=== PATIENT | female | born 1945 | race Caucasian/White ===

== ENCOUNTER 2018-07-31 23:30 | Inpatient (IN) | payer MEDICARE ==
--- NOTE | ~2018-07-31 | HEMODYNAMI ---
PATIENT:HOWARD WILKINS MEDICAL RECORD: [id number] : 49 LOCATION[id number] ADMISSION DATE: 08/01/18 Generatedon:08/01/201814:31 Patient name: HOWARD WILKINS Patient #: [id number] SSN: : 1945 Date of study: 08/01/2018 Page: Of Hemodynamic Procedure Report Patient Data Patient Demographics Procedure consent was obtained First Name: HOWARD Gender: Female Last Name: CLAUDETTE : 1945 [facility] Initial: ROBERTO Age: 73 year(s) Patient #: [id number] Race: Unknown Additional ID: [id number] Contact details Address: [address] [place] [address] circle State: [place] City: [facility] Zip code: [address] Past Medical History Allergies Allergen Reaction Date Comments Reported Other allergy 08/01/2018 ALLOPURINOL, PEANUT OIL, PEANUTS Admission Admission Data Admission Date: 08/01/2018 Admission Time: 0:05 Room #: D.2119 Lab Results Lab Result Date: 08/01/2018 Lab Result Time: 0:00 Biochemistry Name Units Result Min Max BUN mg/dl 39 --(----)-* 7 18 Creatinine mg/dl 1.6 --(----)-* 0.6 1.3 CBC Name Units Result Min Max Hematocrit % 41.6 -*(----)-- 42 54 Hemoglobin g/dl 13.8 --(*---)-- 13.5 17.5 Procedure Procedure Types Cath Procedure Diagnostic Procedure LHC LHC w/Coronaries Sedation Charges Moderate Sedation up to 30 minutes Procedure Description Procedure Date Procedure Date: 08/01/2018 Procedure Start Time: 13:55 Procedure End Time: 14:30 Procedure Staff Name Function Konrad Rodriguez MD Performing Physician Cayla Terrazas RT Monitor Smith Carrasco RT Scrub Carlito Kincaid RN Nurse Procedure Data Cath Procedure Fluoroscopy Diagnostic fluoroscopy Total fluoroscopy Time: 3.6 time: 3.6 min min Diagnostic fluoroscopy Total fluoroscopy dose: 490 dose: 490 mGy mGy Contrast Material Contrast Material Type Amount (ml) Isovue 300 82 Entry Location Entry Primary Successful Side Size Upsize Upsize Entry Closure Succes sful Closure Location (Fr) 1 (Fr) 2 (Fr) Remarks Device Remarks Femoral Left 5 Fr 6 Fr Exoseal artery Long Estimated blood loss: 10 ml Diagnostic catheters Device Type Used For End Catheter Placement MULTIPACK JL 4.0 5Fr Procedure catheter MULTIPACK JL 4.0 5Fr Procedure catheter MULTIPACK 3DRC 5Fr Procedure catheter MULTIPACK Pigtail 5 Fr Procedure catheter Procedure Complications No complications Procedure Medications Medication Administration Route Dosage Oxygen etCO2 Nasal cannula 2 l/min Lidocaine 2% added to field 20 Heparin Flush Bag added to field 2 bags (1000units/500ml NS) 0.9% NaCl I.V. 100 ml/hr Radial Cocktail added to field 1 syringe (Verapamil 2mg/Nitro 400mcg/Heparin 1500units) Versed I.V. 1 mg Fentanyl I.V. 50 mcg Fentanyl I.V. 50 mcg Versed I.V. 1 mg Fentanyl I.V. 50 mcg Fentanyl I.V. 50 mcg Hemodynamics Rest HGB: 13.8 (g/dl) Heart Rate: 73 (bpm) Pressure Samples Time Site Value (mmHg) Purpose Heart Use Rate(bpm) 14:23 LV 144/18,20 Snapshot 67 14:23 AO 142/61(92) Pullback 68 14:23 LV 144/20,28 Pullback 68 Gradients Valve Time Site 1 Site 2 Mean SEP/DFP Peak To Heart Use (mmHg) (sec/min) Peak Rate (mmHg) (bpm) Aortic 14:23 LV AO 4 9 2 68 144/20,28 142/61(92) Calculations Valve P-P Mean Valve Index Valve Source Name Gradient Area Flow (cm2) Aortic 2 4 2 4 Snapshots Pre Cath Intra NCS Post Cath Vital Signs Time Heart Resp SPO2 etCO2 NIBP (mmHg) Rhythm Pain Sedation Rate (ipm) (%) (mmHg) Status Level (bpm) 13:47:50 75 29 100 31.6 156/76(118) NSR 0 (11) 10(A) , No pain 13:53:28 81 28 94 0 144/73(126) NSR 0 (11) 10(A) , No pain 13:58:49 83 16 95 24.8 146/77(118) NSR 0 (11) 10(A) , No pain 14:03:11 72 30 94 15.8 141/66(103) NSR 0 (11) 10(A) , No pain 14:07:32 67 27 92 15.8 136/65(90) NSR 0 (11) 10(A) , No pain 14:11:46 64 20 96 0 111/54(81) NSR 0 (11) 10(A) , No pain 14:16:06 62 17 95 18.8 105/50(80) NSR 0 (11) 10(A) , No pain 14:20:20 68 17 92 19.5 120/60(87) NSR 0 (11) 10(A) , No pain 14:24:40 68 31 93 14.3 128/57(81) NSR 0 (11) 10(A) , No pain 14:28:58 64 17 94 17.3 115/54(72) NSR 0 (11) 10(A) , No pain Medications Time Medication Route Dose Verified Delivered Reason Notes Effectiveness by by 13:48:02 Oxygen etCO2 2 l/min Konrad Esteban used for Nasal St Jeramie Kincaid RN procedure cannula 13:48:09 Lidocaine 2% added 20ml Konrad Silvestre for local to vial [facility] anesthetic field MD VAZQUEZ 13:48:15 Heparin Flush added 2 bags Konrad Silvestre used for Bag to [facility] procedure (1000units/500ml field MD VAZQUEZ NS) 13:48:23 0.9% NaCl I.V. 100 Konrad Esteban Per ml/hr St Jeramie Kincaid RN physician 13:51:46 Versed I.V. 1 mg Konrad Roberie for sedation St Jeramie Kincaid RN, MD 13:51:52 Fentanyl I.V. 50 mcg Konrad Roberie for sedation St Jeramie Kincaid RN, MD 13:58:40 Radial Cocktail added 1 Konrad Konrad for (Verapamil to syringe [facility] vasodilation 2mg/Nitro field MD VAZQUEZ 400mcg/Heparin 1500units) 13:59:23 Fentanyl I.V. 50 mcg Konrad Richterie for sedation St Jeramie Kincaid RN, MD 14:00:05 Versed I.V. 1 mg Konrad Richterie for sedation St Jeramie Kincaid RN, MD 14:07:09 Fentanyl I.V. 50 mcg Konrad Esteban for sedation St Jeramie Kincaid RN, MD 14:21:25 Fentanyl I.V. 50 mcg Konrad Esteban for sedation St Jeramie Kincaid RN, MD Procedure Log Time Note 13:00:57 Carlito Kincaid RN sent for patient. Start room use. 13:11:52 Signed procedure consent form obtained from patient. 13:11:53 Diagnostic Cath status Elective 13:12:04 Time tracking: Regular hours (M-F 7:00 - 5:00) 13:12:08 Plan of Care:Hemodynamics will remain stable., Cardiac rhythm will remain stable., Comfort level will be maintained., Respiratory function will remain adequate., Patient/ family verbilizes understanding of procedure., Procedure tolerated without complication., Recovers from procedure without complications.. 13:33:02 Patient received from Med II to CCL 1 Alert and oriented. Tansferred to table in Supine position. 13:33:03 Warm blankets applied, and gal hugger turned on for patient comfort. 13:33:04 Correct patient and procedure confirmed by team. 13:33:05 ECG and BP/O2 sat monitors applied to patient. 13:46:16 Full Disclosure recording started 13:46:20 Rhythm: sinus rhythm 13:46:21 Baseline sample Acquired. 13:46:27 Vital chart was started 13:46:31 Family in patients room. 13:46:35 Patient NPO since Midnight. 13:46:54 Patient allergic to Other allergyALLOPURINOL, PEANUT OIL, PEANUTS 13:46:57 Patient diabetic? Yes. 13:46:59 If diabetic: On Metformin? No 13:47:05 Is patient on blood thinner?No 13:47:07 Is the patient allergic to Iodine/contrast media? Yes. 13:47:20 Previous problem with sedation/anesthesia? Yes NAUSEA 13:47:22 Snore? Yes 13:47:23 Sleep apnea? No 13:47:24 Deviated septum? No 13:47:25 Opens mouth fully? Yes 13:47:25 Sticks out tongue? Yes 13:47:28 Airway obstruction? Yes COPD 13:47:33 Modified Silvio's test Ulnar < 7 seconds 13:47:35 Patient pain scale 0/10 ?. 13:47:42 IV patent on arrival in right forearm with 0.9% NaCl at KVO. 13:48:02 Oxygen 2 l/min etCO2 Nasal cannula was administered by Carlito Kincaid RN; used for procedure; 13:48:09 Lidocaine 2% 20ml vial added to field was administered by Konrad Rodriguez MD; for local anesthetic; 13:48:12 Lab Result : BUN 39 mg/dl 13:48:12 Lab Result : Creatinine 1.6 mg/dl 13:48:12 Lab Result : Hemoglobin 13.8 g/dl 13:48:12 Lab Result : Hematocrit 41.6 % 13:48:15 Heparin Flush Bag (1000units/500ml NS) 2 bags added to field was administered by Konrad Rodriguez MD; used for procedure; 13:48:15 Lab results completed and on chart. 13:48:19 Right Radial & Right Groin area was prepped with chlora-prep and draped in sterile fashion 13:48:20 Alarms reviewed by R. N. 13:48:20 Sharps counted by scrub and verified by R.N. 13:48:23 0.9% NaCl 100 ml/hr I.V. was administered by Carlito Kincaid RN; Per physician; 13:48:25 Use device set Radial Dx or PCI 13:48:26 ACIST Syringe (85434) opened to sterile field. 13:48:26 Medline Cath Pack ([id number]) opened to sterile field. 13:48:27 Bag Decanter () opened to sterile field. 13:48:28 ACIST Manifold (67950) opened to sterile field. 13:48:29 ACIST Hand Control (83489) opened to sterile field. 13:48:29 Tegaderm 4 x 4 (1626W) opened to sterile field. 13:48:30 MBrace Wrist Support ([id number]) opened to sterile field. 13:48:31 EMERALD Guide Wire (263-375) opened to sterile field. 13:48:33 SHEATH 6FR Slender (39-2060) opened to sterile field. 13:50:42 --------ALL STOP TIME OUT------ 13:50:43 Final Timeout: patient, procedure, and site verified with staff and physician. All members of the team are in agreement. 13:50:44 Right Radial & Right Groin site verified by team. 13:50:47 Maximum allowable Isovue 300 dose 300ml. Physician notified. (300ml for normal creatinines. For patients with creatinine of 1.7 or higher multiply weight(kg) x 5 divided by creatinine.) 13:50:51 Fire Safety Assessment: A--An alcohol-based skin anteseptic being used preoperatively., C--Open oxygen or nitrous oxide is being used., D--An ESU, laser, or fiber-optic light is being used. 13:50:56 Physical assessment completed. ASA score P 3 - A patient with severe systemic disease as per Konrad Rodriguez MD. 13:51:00 Sedation plan: IV Moderate Sedation Medication:Versed, Fentanyl 13:51:46 Versed 1 mg I.V. was administered by Carlito Kincaid RN; for sedation; 13:51:52 Fentanyl 50 mcg I.V. was administered by Carlito Kincaid RN; for sedation; 13:54:49 Procedure started. 13:55:16 Local anesthetic to right radial artery with Lidocaine 2% by Konrad Rodriguez MD.INITIAL ACCESS ONLY 13:58:40 Radial Cocktail (Verapamil 2mg/Nitro 400mcg/Heparin 1500units) 1 syringe added to field was administered by Konrad Rodriguez MD; for vasodilation; 13:59:23 Fentanyl 50 mcg I.V. was administered by Carlito Kincaid RN; for sedation; 14:00:05 Versed 1 mg I.V. was administered by Carlito Kincaid RN; for sedation; 14:01:56 UNABLE TO GO RADIAL. PROCEED TO LT. GROIN 14:05:20 SHEATH 5FR Pitkin (AZQ314) opened to sterile field. 14:05:34 Local anesthetic to left femerol artery with Lidocaine 2% by Konrad Rodriguez MD.ADDITIONAL ACCESS 14:07:09 Fentanyl 50 mcg I.V. was administered by Carlito Kincaid RN; for sedation; 14:08:30 A 5 Fr sheath was inserted into the Left Femoral artery 14:08:58 Use device set Multipack Set 14:09:00 DIAGNOSTIC Multipack 5Fr catheter set ([id number]) opened to sterile field. 14:09:36 A MULTIPACK JL 4.0 5Fr catheter was advanced over the wire and used for Procedure. 14:11:01 GLIDE WIRE ANGLE 260cm (VW2424) opened to sterile field. 14:11:12 MAGIC TORQUE 180cm 0.035 wire ([id number]) opened to sterile field. 14:14:16 SHEATH 6FR Destination (RSR01) opened to sterile field. 14:14:33 Catheter exchanged over wire. 14:14:44 LONG 6F SHEATH NEEDED 14:15:03 Sheath upsized to a 6 Fr Long. 14:16:56 A MULTIPACK JL 4.0 5Fr catheter was advanced over the wire and used for Procedure. 14:19:28 LCA angiography performed. 14:19:37 Catheter exchanged over wire. 14:19:45 A MULTIPACK 3DRC 5Fr catheter was advanced over the wire and used for Procedure. 14:21:12 RCA angiography performed. 14:21:13 Catheter exchanged over wire. 14:21:21 A MULTIPACK Pigtail 5 Fr catheter was advanced over the wire and used for Procedure. 14:21:25 Fentanyl 50 mcg I.V. was administered by Carlito Kincaid RN; for sedation; 14:22:05 LV gram done using CARMONA 14:22:10 Injector settings: Ml/sec: 10, Volume: 20, 14:23:04 LV hemodynamics recorded. 14:23:16 EF : 20 % 14:23:18 Catheter removed. 14:23:29 EXOSEAL 6Fr (EX600) opened to sterile field. 14:24:18 SHEATH 6FR Pitkin (RXV707) opened to sterile field. 14:24:29 LONG SHEATH EXCHANGED FOR SHORT SHEATH 14:24:44 Sheath removed intact; hemostasis achieved with Exoseal to the Left Femoral artery. 14:26:03 Procedure ended.(Physican Out) 14:26:15 Fluoroscopy time 03.60 minutes. 14:26:19 Fluoroscopy dose: 490 mGy 14:: Flurop Dose total: 490 14:26:23 Contrast amount:Isovue 300 82ml. 14:26:30 Sharps counted by scrub and verified by R.N. 14::34 Post-op/insertion site Left Femoral artery dressed using a 4 x 4 and Tegaderm. 14::37 Post-procedure physical assessment completed. ASA score P 3 - A patient with severe systemic disease as per Konrad Rodriguez MD. 14:26:39 Post procedure rhythm: sinus rhythm 14::41 Estimated blood loss: 10 ml 14:26:42 Post procedure instruction explained to patient.Patient verbalizes understanding. 14:26:43 Patient needs reinforcement of post procedure teaching. 14:27:01 Procedure type changed to Cath procedure, Diagnostic procedure, LHC, LHC w/Coronaries, Sedation Charges, Moderate Sedation up to 30 minutes 14:29:47 Procedure and supply charges have been captured, reviewed, submitted and are correct. 14:29:51 Procedure Complication : No complications 14:29:53 Vital chart was stopped 14:29:53 See physician's report for complete and final results. 14:29:55 Report given to PCU. 14:29:58 Patient transfered to PCU with Bed. 14:30:00 Procedure ended. 14:30:00 Full Disclosure recording stopped 14:30:03 End room use (Document Last) Device Usage Item Name Manufacture Quantity Catalog Hospital Part Current Minima l Lot# / Number Charge Number Stock Stock Serial# Code ACIST Acist 1 12956 616156 483102 031260 20 Syringe Medical (16969) Systems Inc Medline Cath Medline 1 [id number] 519767 46152 984148 5 Pack ([id number]) Bag Decanter Microtek 1 2002S 319633 16205 730933 5 (2002S) Medical Inc. ACIST Acist 1 40716 578719 600219 995354 5 Manifold Medical (45754) Systems Inc ACIST Hand Acist 1 08282 033395 442667 311935 5 Control Medical (42817) Systems Inc Tegaderm 4 x 3M 1 1626W 305900 624061 767904 5 4 (1626W) MBrace Wrist Advanced 1 140-0250-00 181903 40967 817722 5 Support Vascular (440231062) Dynamics EMERALD Cardinal 1 502-455 527090 891486 012162 5 Guide Wire Health (502-455) SHEATH 6FR Terumo 1 [id number] 570045 177875 334006 5 Slender (80-1060) SHEATH 5FR Terumo 1 CIW492 891575 831912 913147 5 Pitkin (MGE047) DIAGNOSTIC Cardinal 1 MM8540 522890 51779 718002 30 Multipack Health 5Fr catheter set (MA3967) MULTIPACK JL Cardinal 1 830720 5 4.0 5Fr Health catheter GLIDE WIRE Terumo 1 PU1318 960042 810720 671894 5 ANGLE 260cm (UR3102) MAGIC TORQUE Sag[place]ore 1 [id number] 719043 228711 807052 1 180cm 0.035 Scientific wire ([id number]) SHEATH 6FR Terumo 1 RSR01 434479 95743 654519 5 Destination (RSR01) MULTIPACK Cardinal 1 262387 5 3DRC 5Fr Health catheter MULTIPACK Cardinal 1 397090 5 Pigtail 5 Fr Health catheter EXOSEAL 6Fr Cardinal 1 EX600 306276 325296 108885 10 (EX600) Health SHEATH 6FR Terumo 1 SWW664 308473 158883 874594 40 Pitkin (LSQ392) Signature Audit [place] Stage Time Signature Unsigned Intra-Procedure 08/01/2018 Cayla Terrazas 2:31:16 PM RT(R) Signatures Monitor : Cayla Terrazas Signature : RT Date : Time : [address] [place] [address]
[~2018-07-31 23:30] MED LIST: BAYER CHEWABLE81 MG PO; GLUCOPHAGE850 MG PO; GLUCOTROL 5 MG T5 MG PO; HYDROCHLOROTHIA25 MG PO; LASIX20 MG PO; LYRICA50 MG PO; MOBIC7.5 MG PO; PEPCID40 MG PO; PLAVIX75 MG PO; SYNTHROID50 MCG PO
[2018-07-31] MEDS ORDERED: KLOR-CON 1010 MEQ PO (23:41)
[2018-07-31] MEDS ORDERED: TOPROL XL25 MG PO (23:41)
[2018-07-31] MEDS ORDERED: COREG6.25 MG PO (23:42)
[2018-07-31] MEDS ORDERED: PACERONE200 MG PO (23:42)
[2018-07-31] MEDS ORDERED: BUSPAR10 MG PO (23:43)
[2018-07-31] MEDS ORDERED: ULORIC80 MG PO (23:43)
[2018-07-31] MEDS ORDERED: PEPCID AC20 MG (23:43)
[2018-07-31] MEDS ORDERED: BUMEX2 MG PO (23:44)
[2018-08-01 00:17] LABS: BASOPHILS 0.3 % (0-2); EOSINOPHILS 2.9 % (0-7); HEMATOCRIT 45.5 % (36.0-48.0); HEMOGLOBIN 15.4 g/dL (12-16); IMMATURE GRANULOCYTES 0.5 % (0-5); LYMPHOCYTES 21.9 % (15-50); MCH 33.6 pg (26.0-34.0); MCHC 33.8 g/dL (31.0-37.0); MCV 99.3 fL (80.0-100.0); MEAN PLATELET VOLUME 10.2 fL (7.4-10.4); MONOCYTES 13.7 % (2-11); NEUTROPHILS 60.7 % (40-80); RBC 4.58 10x6/uL (4.00-5.40); RDW 15.7 % (11.5-14.5); WBC 6.6 10x3/uL (4.8-10.8)
[2018-08-01 00:19] LABS: PLATELET COUNT 206 10x3/uL (130-400)
[2018-08-01 00:28] LABS: APTT 25.7 SECONDS (22.8-39.4); INR 0.97 (0.85-1.17); PROTIME 12.4 SECONDS (11.6-15.0)
[2018-08-01 00:34] LABS: ALBUMIN 3.7 g/dL (3.4-5.0); ANION GAP 11.8 mmol/L (8-16); BILIRUBIN - TOTAL 0.45 mg/dL (0.2-1.3); CALCIUM 9.2 mg/dL (8.5-10.1); CARBON DIOXIDE 30.5 mmol/L (21.0-32.0); CREATININE - SERUM 1.9 mg/dL (0.6-1.3); POTASSIUM - SERUM 5.3 mmol/L (3.5-5.1); PROTEIN - SERUM 7.9 g/dL (6.4-8.2)
[2018-08-01 00:39] LABS: APPEARANCE HAZY (CLEAR); BILIRUBIN NEGATIVE (NEGATIVE); COLOR YELLOW (YELLOW); GLUCOSE NEGATIVE (NEGATIVE); KETONE NEGATIVE (NEGATIVE); NITRITE POSITIVE (NEGATIVE); PROTEIN NEGATIVE (NEGATIVE); SPECIFIC GRAVITY 1.015 (1.005-1.020); UROBILINOGEN NORMAL (NORMAL)
[2018-08-01 00:40] LABS: BACTERIA MANY /hpf (NONE SEEN); EPITHELIAL CELLS 0-5 /hpf (0-5); RED CELLS - URINE 0-5 /hpf (0-5)
[2018-08-01 00:48] LABS: THYROID STIMULATING HORMONE 4.02 uIU/mL (0.36-3.74)
[2018-08-01 00:49] LABS: TROPONIN-I 0.016 ng/mL (0.000-0.060)
--- NOTE | 2018-08-01 01:54 | NUR ---
PT TO FLOOR VIA WHEELCHAIR. PT ALERT AND ORIENTED X 4. UP AB YADIRA. DENIES PAIN AT THIS TIME. IV TO R FA WITH LEVAQUIN INFUSING UPON ARRIVAL TO FLOOR. TELE APPLIED, NORMAL SINUS RHYTHM NOTED. PT STATES SHE HAS A PACEMAKER TO L CHEST. RM AIR. NO EDEMA NOTED AT THIS TIME. NON PRODUCTIVE COUGH NOTED. DENIES FURTHER NEEDS AT THIS TIME. VITALS STABLE. BED LOWERED AND LOCKED. CL IN REACH. WILL CTM.
[2018-08-01 02:05] VITALS: BP 149/79; BMI 29.9
[2018-08-01 04:00] VITALS: BP 149/79
--- NOTE | 2018-08-01 04:36 | NUR ---
PT LAYING IN BED RESTING AT THIS TIME. BREATHING EVEN AND UNLABORED. DENIES PAIN. NO FURTHER CONCERNS. BED LOWERED AND LOCKED. CL IN REACH. WILL CTM.
--- NOTE | 2018-08-01 04:40 | NUR ---
PT C/O DULL/ACHY CHEST PAIN IN MID STERNUM THAT "KEEPS HANGING ON" PT NORMAL SINUS 65 ON TELE. GAVE PT ONE DOSE OF SL 0.4 MG NITROGLYCERIN. INFORMED PT I WOULD REASSESS HER CHEST PAIN IN 5 MINUTES. INFOMRED PT THAT SHE COUDL HAVE THE NITRO Q5 MIN X 3 DOSE. NO FURTHER CONERNS. PT STATED THAT THE PAIN MIGHT HAVE BEEN FROM LAYING ON HER SIDE TOO LONG. WILL CTM
--- NOTE | 2018-08-01 04:51 | NUR ---
PT STATED THAT SHE IS NO LONGER HAVING CHEST PAIN. NITRO NO LONGER NEEDED. WILL CTM
--- NOTE | 2018-08-01 06:45 | NUR ---
ASSESSMENT DONE. ALERT AND ORIENTED X 4. DENIES NEEDS AT THIS TIME. WILL CONTINUE TO MONITOR.
[2018-08-01 07:31] VITALS: BP 148/70
[2018-08-01 08:25] LABS: ANION GAP 15.4 mmol/L (8-16); CALCIUM 8.9 mg/dL (8.5-10.1); CARBON DIOXIDE 25.2 mmol/L (21.0-32.0); CREATININE - SERUM 1.6 mg/dL (0.6-1.3); POTASSIUM - SERUM 4.6 mmol/L (3.5-5.1)
[2018-08-01 08:32] LABS: BASOPHILS 0.5 % (0-2); EOSINOPHILS 2.7 % (0-7); HEMATOCRIT 41.6 % (36.0-48.0); HEMOGLOBIN 13.8 g/dL (12-16); IMMATURE GRANULOCYTES 0.3 % (0-5); LYMPHOCYTES 22.6 % (15-50); MCH 33.1 pg (26.0-34.0); MCHC 33.2 g/dL (31.0-37.0); MCV 99.8 fL (80.0-100.0); MEAN PLATELET VOLUME 10.4 fL (7.4-10.4); MONOCYTES 14.5 % (2-11); NEUTROPHILS 59.4 % (40-80); PLATELET COUNT 197 10x3/uL (130-400); RBC 4.17 10x6/uL (4.00-5.40); RDW 15.6 % (11.5-14.5); WBC 6.4 10x3/uL (4.8-10.8)
--- NOTE | 2018-08-01 09:18 | NUR ---
ASSESSMENT DONE. DENIES NEEDS AT THIS TIME. ALERT AND ORIENTED X 4. WILL CONTINUE TO MONITOR.
--- NOTE | 2018-08-01 10:10 | NUR ---
I have reviewed this patient and I concur with the Shift Assessment completed by the Licensed Practical Nurse today this shift.
[2018-08-01 11:21] VITALS: BP 128/49
[2018-08-01 14:20] VITALS: BMI 29.9
[2018-08-01 15:24] VITALS: BP 137/56
[2018-08-01] MEDS ORDERED: ULTRAM50 MG PO (17:44)
[2018-08-01 20:00] VITALS: BP 123/48
[2018-08-02] VITALS: BP 122/54
--- NOTE | 2018-08-02 02:23 | NUR ---
IV TO LEFT ARM OUT, TIP INTACT. RESITED IV TO INNER RIGHT FOREARM, 22 GUAGE. FIRST ATTEMPT. PT TOLERATED WELL. LEVAQUIN INFUSING.
[2018-08-02 03:58] LABS: BASOPHILS 0.1 % (0-2); EOSINOPHILS 2.2 % (0-7); HEMATOCRIT 41.6 % (36.0-48.0); HEMOGLOBIN 13.5 g/dL (12-16); IMMATURE GRANULOCYTES 0.1 % (0-5); LYMPHOCYTES 13.6 % (15-50); MCH 32.6 pg (26.0-34.0); MCHC 32.5 g/dL (31.0-37.0); MCV 100.5 fL (80.0-100.0); MEAN PLATELET VOLUME 9.8 fL (7.4-10.4); MONOCYTES 11.4 % (2-11); NEUTROPHILS 72.6 % (40-80); PLATELET COUNT 176 10x3/uL (130-400); RBC 4.14 10x6/uL (4.00-5.40); RDW 15.5 % (11.5-14.5); WBC 6.8 10x3/uL (4.8-10.8)
[2018-08-02 04:00] VITALS: BP 102/41
[2018-08-02 04:25] LABS: ANION GAP 10.1 mmol/L (8-16); BILIRUBIN - TOTAL 0.36 mg/dL (0.2-1.3); CALCIUM 8.6 mg/dL (8.5-10.1); CARBON DIOXIDE 31.1 mmol/L (21.0-32.0); MAGNESIUM - SERUM 1.7 mg/dL (1.8-2.4); POTASSIUM - SERUM 4.2 mmol/L (3.5-5.1); PROTEIN - SERUM 6.7 g/dL (6.4-8.2)
--- NOTE | 2018-08-02 04:42 | NUR ---
I have reviewed this patient and I concur with the Shift Assessment completed by the Licensed Practical Nurse today this shift.
--- NOTE | 2018-08-02 07:45 | NUR ---
ASSESSMENT DONE. DENIES NEEDS
[2018-08-02 08:37] VITALS: BP 114/49
[2018-08-02 12:08] VITALS: BP 99/41
--- NOTE | 2018-08-02 12:37 | NUR ---
I have reviewed this patient and I concur with the Shift Assessment completed by the Licensed Practical Nurse today this shift.
[2018-08-02] MEDS ORDERED: COREG6.25 MG PO (16:39)
[2018-08-02] MEDS ORDERED: COZAAR50 MG PO (16:39)
[2018-08-02] MEDS ORDERED: SYNTHROID50 MCG PO (16:40)
[2018-08-02] MEDS ORDERED: BUMEX2 MG PO (16:40)
[2018-08-02] MEDS ORDERED: KLOR-CON 1010 MEQ PO (16:41)
--- NOTE | 2018-08-02 16:43 | NUR ---
WITHOUT CHANGES OR DISTRESS AT THIS TIME. DENIES NEEDS.
--- NOTE | 2018-08-02 18:04 | NUR ---
DC GIVEN TO PT, DC HOME PER PERSONAL CAR
--- NOTE | 2018-08-05 08:44 | MORECARE ---
CASE MANAGEMENT DISCHARGE SUMMARY PATIENT: HOWARD WILKINS UNIT: [id number] ADM DATE: 08/01/18 AGE: 73 : [birth year] SEX: F ROOM/BED: D.2119 AUTHOR: KELTON LIU PHYSICIAN: REFERRING PHYSICIAN: ALONSO BARBOSA MD DATE OF SERVICE: 08/05/18 Discharge Plan Patient Name: HOWARD WILKINS [facility] [facility] 1945 Planned Disposition: Home Anticipated Discharge Date: 08/02/18 Discharge Date: 08/02/2018 Expected LOS: 1 Initial Reviewer: [email or web address] Initial Review Date: 08/05/2018 Generated: 08/05/18 9:44 am Patient Name: HOWARD WILKINS Page [id number] at 0844 All edits/amendments must be made on the electronic document DICTATION DATE: 08/05/1843 INDEPENDENT AGENT MUSIC EDUCATION: HE 08/05/18 0843 RPT#: [id number] DC DATE:08/02/18 STATUS: DIS IN [facility] [address] [place] [address] END OF REPORT
--- NOTE | 2018-08-05 14:16 | OP ---
PATIENT NAME: HOWARD WILKINS MEDICAL RECORD: [id number] :49 LOCATION:D.M2 D.2119 ADMISSION DATE:08/02/18 SURGEON: CELESTINE LOVETT MD DATE OF OPERATION: 08/01/2018 PROCEDURE: Left heart catheterization, selective coronary angiography, right femoral artery approach. CATHETERS: A long 6-Romanian sheath on the left side secondary to crossover graft on the left and marked tortuosity of the left iliac system. Also JL4 curved pigtail catheter. The procedure was well tolerated. The patient was returned to rush. Sheath was removed. ExoSeal device was placed. FINDINGS: Left ventriculography in 30-degree CARMONA view shows severe global hypokinesis. EF is markedly reduced. Estimated EF is 20% to 25%. CORONARY ANATOMY: LEFT MAIN: Left main is free of disease. LAD: Area of previous stenting is widely patent. There is a small diagonal pinched off at its proximal portion. CIRCUMFLEX: Free of disease. RIGHT CORONARY ARTERY: Previously placed stent is widely patent. IMPRESSION: Severe nonischemic cardiomyopathy. I will begin ARB and diuretics. Certainly could be candidate for Entresto. Continue beta blockade in the form of carvedilol. Further recommendations based on above. TRANSINT:[id number] Voice Confirmation ID: [id number] DOCUMENT ID: [id number] CELESTINE LOVETT MD at 1416 CC: [id number] DICTATION DATE: 08/01/18 1444 VESSEL SPECIALIST: 08/01/18 1801 DIS IN 08/02/18 [facility] [address] [place] [address]
--- NOTE | 2018-08-05 14:16 | CN ---
PATIENT NAME:HOWARD WILKINS MEDICAL RECORD: [id number] : [birth year] LOCATION:D.[place] D.2119 ADMIT DATE: 08/02/18 ACCOUNT: [id number] CONSULTING PHYSICIAN: CELESTINE LOVETT MD REFERRING PHYSICIAN: ALONSO BARBOSA MD DATE OF CONSULTATION: 08/01/2018 HISTORY OF PRESENT ILLNESS: A 73-year-old female with known history of coronary artery disease, status post intervention most recently, approximately [address] Almanza, has previous history of coronary artery disease, status post intervention, atrial fibrillation, actually doing well until Sunday, worked in the yard, some this week and began having increasing angina, onset of rest symptomology yesterday with chest tightness, pressure. We are asked to see her concerning her cardiovascular status. PAST MEDICAL HISTORY: Includes: 1. History of hypertension. 2. Coronary artery disease as described above. 3. Dyslipidemia. 4. Atrial fibrillation. 5. Hypothyroidism, on replacement. ALLERGIES: ALLOPURINOL. MEDICATIONS: Include amiodarone 200 mg p.o. daily, carvedilol 6.25 b.i.d., BuSpar 10 t.i.d., Bumex 2 mg daily, potassium supplementation, Pepcid 40 b.i.d., and Synthroid 50 mcg every day. SOCIAL HISTORY: Nonsmoker, nondrinker. Easily takes care of all her ADLs, does try to walk on a frequent basis. REVIEW OF SYSTEMS: The patient reports easy bruising but reports no swollen glands. The patient reports no fever, no night sweats, no significant weight gain, no significant weight loss. No significant exercise tolerance. The patient reports no dry eyes, no irritation, no vision change. Patient reports no difficulty hearing and no ear pain. Patient reports no frequent nose bleeds or nose and sinus problems. Patient reports on arm pain on exertion. No shortness of breath while lying down. No history of heart murmur. Patient reports no cough, no wheezing or coughing up blood. Patient reports no abdominal pain, no vomiting. Normal appetite. No diarrhea and not vomiting blood. No nausea and no constipation. Patient reports no incontinence. No difficulty urinating. No hematuria. No increased frequency. Patient reports no muscle aches. No weakness, no arthralgias, no back pain. No swelling of the extremities. Patient reports no abnormal mole, no jaundice, no rashes. Reports no loss of consciousness. No weakness and no numbness. No seizures, dizziness, or headaches. The patient reports no depression, no sleep disturbance, feeling safe in a relationship and no alcohol abuse. Patient reports on fatigue. Reports no runny nose or sinus pressure. No itching, no hives, and no frequent sneezing. PHYSICAL EXAMINATION: GENERAL: Pleasant female in no acute distress, appears stated age. VITAL SIGNS: Blood pressure 148/70, pulse 69 and regular. HEENT: Normocephalic, atraumatic. NECK: No bruits are noted. CONSULT REPORT [id number] HOWARD WILKINS HEART: Regular, II/ systolic ejection murmur. CHEST: Fairly good air excursion. ABDOMEN: Soft, nontender. EXTREMITIES: Pulses decreased, 1+. There is no edema. NEUROLOGIC: Grossly intact. DIAGNOSTIC DATA: ECG shows left bundle branch, secondary ST-T changes. IMPRESSION: Acute coronary syndrome, unsure if this is new onset left bundle branch block, now with rest symptomology. PLAN: For angiography, intervention based on the above. TRANSINT:[id number] Voice Confirmation ID: [id number] DOCUMENT ID: [id number] CELESTINE LOVETT MD at 1416 CC: [id number] DICTATION DATE: 08/01/18825 LYE BOILER: 08/01/18 1046 DIS IN 08/02/18 [place] [id number]
== END 2018-08-02 18:06 | disposition home or self-care (01) | DRG 287 ==
LOC: OBSVTIME → D.ER 23:30 → OBSVTIME 08-01 00:05 → D.ER 08-01 00:05 → D.M2 08-01 00:05
PROVIDERS: Family Medicine; Internal Medicine Interventional Cardiology; ADMIT Family Medicine; ATTEND Family Medicine
PROC: B2151ZZ Fluoroscopy of Left Heart using Low Osmolar Contrast (ICD-10-PCS; 2018-08-01)
PROC: 4A023N7 Measurement of Cardiac Sampling and Pressure, Left Heart, Percutaneous Approach (ICD-10-PCS; 2018-08-01)
PROC: B2111ZZ Fluoroscopy of Multiple Coronary Arteries using Low Osmolar Contrast (ICD-10-PCS; principal; 2018-08-01 13:00)
DX: I24.9 Acute ischemic heart disease, unspecified (principal); I42.9 Cardiomyopathy, unspecified; N39.0 Urinary tract infection, site not specified; N17.9 Acute kidney failure, unspecified; I44.7 Left bundle-branch block, unspecified; I25.110 Atherosclerotic heart disease of native coronary artery with unstable angina pectoris; J44.9 Chronic obstructive pulmonary disease, unspecified; E03.9 Hypothyroidism, unspecified; M19.90 Unspecified osteoarthritis, unspecified site; M81.0 Age-related osteoporosis without current pathological fracture; F32.9 Major depressive disorder, single episode, unspecified; F41.9 Anxiety disorder, unspecified; E87.5 Hyperkalemia; I48.91 Unspecified atrial fibrillation; E11.9 Type 2 diabetes mellitus without complications; Z95.0 Presence of cardiac pacemaker; Z86.73 Personal history of transient ischemic attack (TIA), and cerebral infarction without residual deficits

== ENCOUNTER 2018-10-21 09:07 | Inpatient (IN) | payer MEDICARE ==
[~2018-10-21] VITALS: Ht 149.9 cm; Wt 65.6 kg
[~2018-10-21 09:07] MED LIST changes: +BUMEX2 MG PO; +BUSPAR10 MG PO; +COREG6.25 MG PO; +COZAAR50 MG PO; +KLOR-CON 1010 MEQ PO; +PACERONE200 MG PO; +PEPCID AC20 MG; +TOPROL XL25 MG PO; +ULORIC80 MG PO; +ULTRAM50 MG PO
--- NOTE | 2018-10-21 09:32 | NUR ---
BROUGHT IN BY [facility] FROM HOME WITH REPORTS OF COUGH/CHEST CONGESTION SYMPTOMS FOR SEVERAL DAYS. DENIES FEVER, SOB, CHEST PAIN AT THIS TIME. HX OF COPD. REPORTS WHITE SPUTUM. VSS. NO ACUTE DISTRESS NOTED, WILL CONTINUE TO MONITOR FOR CHANGES.
--- NOTE | 2018-10-21 09:37 | NUR ---
RT AT BEDSIDE AT THIS TIME.
[2018-10-21 09:56] LABS: BASOPHILS 0.5 % (0-2); EOSINOPHILS 2.5 % (0-7); HEMATOCRIT 46.7 % (36.0-48.0); HEMOGLOBIN 15.9 g/dL (12-16); IMMATURE GRANULOCYTES 0.2 % (0-5); MCH 34.5 pg (26.0-34.0); MCV 101.3 fL (80.0-100.0); MEAN PLATELET VOLUME 9.9 fL (7.4-10.4); MONOCYTES 8.7 % (2-11); NEUTROPHILS 65.1 % (40-80); PLATELET COUNT 205 10x3/uL (130-400); RBC 4.61 10x6/uL (4.00-5.40); RDW 13.1 % (11.5-14.5)
[2018-10-21 10:00] VITALS: BP 147/94
[2018-10-21 10:03] LABS: ALBUMIN 3.6 g/dL (3.4-5.0); ALKALINE PHOSPHATASE 139 U/L (46-116); ALT (SGPT) 18 U/L (10-68); BILIRUBIN - TOTAL 0.66 mg/dL (0.2-1.3); CALC OSMOLALITY 290 mosm/kg (275-300); CALCIUM 9.2 mg/dL (8.5-10.1); CARBON DIOXIDE 27.9 mmol/L (21.0-32.0); CHLORIDE - SERUM 103 mmol/L (98-107); CREATININE - SERUM 1.4 mg/dL (0.6-1.3); GLUCOSE 167 mg/dL (74-106); POTASSIUM - SERUM 3.7 mmol/L (3.5-5.1); SODIUM 141 mmol/L (136-145); UREA NITROGEN 30 mg/dL (7-18); eGFR NON AFRICAN AMERICAN 39 mL/min (90-120)
[2018-10-21 10:14] LABS: CKMB 1.3 U/L (0.0-3.6); CREATINE KINASE 34 UL (21-215); PRO BNP 7202 pg/mL (0-125); TROPONIN-I 0.026 ng/mL (0.000-0.060)
[2018-10-21 10:20] LABS: INR 0.95 (0.85-1.17); PROTIME 12.2 SECONDS (11.6-15.0)
--- NOTE | 2018-10-21 12:10 | NUR ---
RECEIVED PT TO ROOM 210 VIA WHEECHAIR, PT WAS ABLE TO AMBULATE FROM WHEECHAIR TO BED WITH STEADY GATE. ORIENTED PT TO ROOM AND CALL LIGHT. PT WAS NOT ABLE TO PROVIDE INFORMATION ABOUT WHAT MEDICATIONS SHE TAKES. WILL TRY AND CALL CL ON [address] TO SEE WHAT MEDICATIONS PT TAKES. WILL ASSESS PT AND START PLAN OF CARE.
--- NOTE | 2018-10-21 14:11 | MORECARE ---
CASE MANAGEMENT DISCHARGE SUMMARY PATIENT: HOWARD WILKINS UNIT: [id number] ADM DATE: 10/21/18 AGE: 73 : 47 SEX: F ROOM/BED: D.6032 AUTHOR: ALEXA,DOC PHYSICIAN: REFERRING PHYSICIAN: ZAINAB HUFF MD DATE OF SERVICE: 10/21/18 Discharge Plan Patient Name: HOWARD WILKINS Facility: [facility]:[place] : 1945 Planned Disposition: Home Anticipated Discharge Date: 10/23/18 Discharge Date: Expected LOS: 2 Initial Reviewer: [email or web address] Initial Review Date: 10/21/2018 Generated: 10/21/18 3:11 pm DCP- Discharge Planning Updated by [email or web address]: Alisa Ly on 10/21/18 1:[address] DC PLAN: Return home alone. ANTICIPATED DC NEEDS: Does not have a PCP. Denied dc needs. CM met with patient to complete initial dc planning assessment. CM educated patient on the CM role and verbal consent given by patient to complete assessment. CM verified patient's address, phone number, and emergency contact phone numbers. Patient lives at home alone and reports she is independent in her care at home. At discharge patient plans to return home alone and feels this is a safe discharge. CM discussed availability of home health, rehab services, and medical equipment. Patient denied known discharge needs at this time. Patient reports she will call a Taxi to transport her home at time of discharge. CM will continue to follow and will assist as needed with dc plans/needs. Alisa Ly RN, [facility] DCPIA - Discharge Planning Initial Assessment Updated by [id number]: Alisa Ly on 10/21/18 2:07 pm * Is the patient Alert and Oriented? Yes * How many steps to enter\exit or inside your home? elevator * PCP Does not have a PCP * Pharmacy [facility] * Preadmission Environment Home Alone * ADLs Independent * Equipment Rolling Walker * List name and contact numbers for known caregivers / representatives who currently or will assist patient after discharge: Jaspal flores - [phone] * Verbal permission to speak to the caregivers and representatives has been obtained from the patient. Yes * Community resources currently utilized None * Additional services required to return to the preadmission environment? No * Can the patient safely return to the preadmission environment? Yes * Has this patient been hospitalized within the prior 30 days at any hospital? No Patient Name: HOWARD WILKINS Page [id number] at 1411 All edits/amendments must be made on the electronic document DICTATION DATE: 10/21/181409 GRAIN HANDLER: HE 10/21/181409 RPT#: [id number] DC DATE: STATUS: ADM IN [facility] [address] [place] [address] END OF REPORT
[2018-10-21 15:30] VITALS: BP 142/66; BMI 30.3
[2018-10-21 15:56] VITALS: BP 010/66
--- NOTE | 2018-10-21 16:55 | NUR ---
BLOOD SUGAR OF 362, 10 UNITS OF INSULIN GIVEN PER S/S. PT EATING DINNER, DENIES ANY NEEDS AT THIS TIME, CALL LIGHT IN REACH, NAD NOTED, WILL CONTINUE TO MONITOR.
[2018-10-21 20:00] VITALS: BP 152/73
[2018-10-22] VITALS: BP 129/82
[2018-10-22 04:30] VITALS: BP 150/69
[2018-10-22 05:19] LABS: ALBUMIN 3.8 g/dL (3.4-5.0); ANION GAP 18.7 mmol/L (8-16); BILIRUBIN - TOTAL 0.43 mg/dL (0.2-1.3); CALCIUM 8.9 mg/dL (8.5-10.1); CARBON DIOXIDE 25.3 mmol/L (21.0-32.0); PROTEIN - SERUM 8.2 g/dL (6.4-8.2)
[2018-10-22 05:30] LABS: HEMATOCRIT 44.3 % (36.0-48.0); HEMOGLOBIN 15.3 g/dL (12-16); LYMPHOCYTES 8.9 % (15-50); MCH 34.2 pg (26.0-34.0); MCHC 34.5 g/dL (31.0-37.0); MEAN PLATELET VOLUME 10.2 fL (7.4-10.4); NEUTROPHILS 87.7 % (40-80); PLATELET COUNT 184 10x3/uL (130-400); RBC 4.47 10x6/uL (4.00-5.40); RDW 12.7 % (11.5-14.5)
[2018-10-22 05:31] LABS: MCV 99.1 fL (80.0-100.0); WBC 7.8 10x3/uL (4.8-10.8)
--- NOTE | 2018-10-22 07:35 | NUR ---
REC'D IN BED AWAKE AND ALERT. RESP EVEN AND UNLABORED WITH NO DISTRESS NOTED. CAN EXPRESS NEEDS AND WANTS. NO C/O NOTED OR VOICED. ASSESSMENT COMPLETED. C/L IN REACH AT BEDSIDE.
--- NOTE | 2018-10-22 09:08 | NUR ---
RFUSED NICODERM PATCH ON THIS AM STATING " I AM NOT GOING TO WEAR THEN." C/L IN REACH AT BEDSIDE.
[2018-10-22 10:03] VITALS: BP 159/82
[2018-10-22 12:00] VITALS: BP 127/56
[2018-10-22 13:51] VITALS: Ht 149.9 cm; Wt 65.6 kg
--- NOTE | 2018-10-22 14:17 | NUR ---
I have reviewed this patient and I concur with the Shift Assessment completed by the Licensed Practical Nurse today this shift.
[2018-10-22 17:00] VITALS: BP 137/62
--- NOTE | 2018-10-22 19:17 | NUR ---
REPORT RCIEVED AND ROUNDING COMPLETE. PATIENT LAYING IN BED IN SUPINE POSITION. PATIENT IS A&O X4 AND STATES SHE HAS NO NEEDS AT THIS TIME, PATIENT IS SHOWING NO S/SX OF DISTRESS AT THIS TIME. PATIENT HOPE TO BE DISCHARGED TOMORROW. PATIENT HAS O2 VIA NASAL CANNULA NEXT TO HER IN HER BED, PATIENT STATES SHE USES IT WILL SHE FEELS SHE NEEDS IT. PATIENT STATES SHE DOSENT USE O2 AT HOME. CALL LIGHT WITHIN REACH AND BED IN LOWEST LOCKED POSITION.
[2018-10-22 20:00] VITALS: BP 128/60
[2018-10-23 00:30] VITALS: BP 135/49
--- NOTE | 2018-10-23 02:51 | NUR ---
I have reviewed this patient and I concur with the Shift Assessment completed by the Licensed Practical Nurse today this shift.
[2018-10-23 04:24] LABS: BASOPHILS 0.1 % (0-2); EOSINOPHILS 0.1 % (0-7); HEMATOCRIT 43.9 % (36.0-48.0); HEMOGLOBIN 15.2 g/dL (12-16); IMMATURE GRANULOCYTES 0.3 % (0-5); LYMPHOCYTES 7.9 % (15-50); MCH 33.9 pg (26.0-34.0); MCHC 34.6 g/dL (31.0-37.0); MONOCYTES 6.9 % (2-11); NEUTROPHILS 84.7 % (40-80); RBC 4.48 10x6/uL (4.00-5.40)
[2018-10-23 04:30] VITALS: BP 124/46
[2018-10-23 04:35] LABS: PLATELET COUNT 229 10x3/uL (130-400)
[2018-10-23 04:55] LABS: ALBUMIN 3.6 g/dL (3.4-5.0); ANION GAP 13.2 mmol/L (8-16); BILIRUBIN - TOTAL 0.35 mg/dL (0.2-1.3); CALCIUM 9.2 mg/dL (8.5-10.1); CREATININE - SERUM 1.7 mg/dL (0.6-1.3); POTASSIUM - SERUM 4.2 mmol/L (3.5-5.1)
--- NOTE | 2018-10-23 07:00 | NUR ---
AM ROUNDS- PT RESTING COMFORTABLY IN BED WITH EYES CLOSED, BREATHING EVEN AND UNLABORED. NO S/S OF DISTRESS NOTED AT THIS TIME. WILL CTM. PT IS ACHS FINGERSTICK BLOOD SUGARS, RUNS SINUS RHYTHM ON THE MONITOR, HAS A PACEMAKER AND DEFIBRILATOR, UP ADLIB, HAS NO IV AND IS ON ROOM AIR.
[2018-10-23 08:35] VITALS: BP 132/67
--- NOTE | 2018-10-23 09:54 | NUR ---
ADMINSITERED MEDICATION AT THIS TIME, NO TROUBLE SWALLOWING. PT IS RESTING COMFORTABLY IN BED AT THIS TIME. DENIES ANY NEEDS AT THIS TIME. WILL CTM.
--- NOTE | 2018-10-23 12:29 | NUR ---
ADMINISTERED MEDICATION, TOLERATED WELL. ASSESSED BLOOD SUGAR, ADMINISTERED 6 UNITS INSULINE PER SLIDING SCALE FOR BLOOD SUGAR OF 289. PT IS RESTING COMFORTABLY UPRIGHT IN BED. DR PIERRE CAME THROUGH AND SAID POSSIBLE DC IN THE MORNING ON 10/24. PT DENIES ANY NEEDS AT THIS TIME. WILL CTM.
[2018-10-23 12:45] VITALS: BP 115/44
--- NOTE | 2018-10-23 14:39 | NUR ---
PT IS RESTING UP RIGHT COMFORTABLY IN BED, NUMERICAL CONTROL MACHINE TOOL OPERATOR AT BEDSIDE PERFORMING PATIENT CARE. DENIES ANY NEEDS AT THIS TIME. WILL CTM.
--- NOTE | 2018-10-23 15:11 | MORECARE ---
CASE MANAGEMENT DISCHARGE SUMMARY PATIENT: HOWARD WILKINS UNIT: [id number] ADM DATE: 10/21/18 AGE: 73 : 47 SEX: F ROOM/BED: D.9377 AUTHOR: ALEXA,DOC PHYSICIAN: REFERRING PHYSICIAN: ZAINAB HUFF MD DATE OF SERVICE: 10/23/18 Discharge Plan Patient Name: HOWARD WILKINS Facility: [facility]:[place] : 1945 Planned Disposition: Home Anticipated Discharge Date: 10/24/18 Discharge Date: Expected LOS: 3 Initial Reviewer: [email or web address] Initial Review Date: 10/21/2018 Generated: 10/23/18 4:11 pm DCP- Discharge Planning Updated by [email or web address]: Alisa Ly on 10/21/18 1:[address] DC PLAN: Return home alone. ANTICIPATED DC NEEDS: Does not have a PCP. Denied dc needs. CM met with patient to complete initial dc planning assessment. CM educated patient on the CM role and verbal consent given by patient to complete assessment. CM verified patient's address, phone number, and emergency contact phone numbers. Patient lives at home alone and reports she is independent in her care at home. At discharge patient plans to return home alone and feels this is a safe discharge. CM discussed availability of home health, rehab services, and medical equipment. Patient denied known discharge needs at this time. Patient reports she will call a Taxi to transport her home at time of discharge. CM will continue to follow and will assist as needed with dc plans/needs. Alisa Ly RN, [facility] DCPIA - Discharge Planning Initial Assessment Updated by [email or web address]: Alisa Ly on 10/21/18 2:07 pm * Is the patient Alert and Oriented? Yes * How many steps to enter\exit or inside your home? elevator * PCP Does not have a PCP * Pharmacy [facility] * Preadmission Environment Home Alone * ADLs Independent * Equipment Rolling Walker * List name and contact numbers for known caregivers / representatives who currently or will assist patient after discharge: Jaspal flores - [phone] * Verbal permission to speak to the caregivers and representatives has been obtained from the patient. Yes * Community resources currently utilized None * Additional services required to return to the preadmission environment? No * Can the patient safely return to the preadmission environment? Yes * Has this patient been hospitalized within the prior 30 days at any hospital? No External Providers External Provider: Sadia Taylor Next Contact Date: 10/23/2018 Service Request Date: Service Type: Resolution: Reviewer: Comments: Coverage Notice Reviewer: [email or web address] Roxann Franco Notice Issued Date-Time: 10/23/2018 12:50 Notice Type: Patient Choice Letter Notice Delivered To: Patient Relationship to Patient: Fuel Buyer Name: Delivery Method: HAND - Hand Delivered Marcia Days: Prior Verbal Notification: Recipient Understood Notice: Yes Recipient Signature: Yes Med Rec Note Co-signed by Attending: Coverage Notice Comment: INOCENCIO Reviewer: [id number] Roxann Franco Notice Issued Date-Time: 10/23/2018 12:50 Notice Type: IM Discharge Notice Notice Delivered To: Relationship to Patient: Fuel Buyer Name: Delivery Method: HAND - Hand Delivered Marcia Days: Prior Verbal Notification: Recipient Understood Notice: Yes Recipient Signature: Yes Med Rec Note Co-signed by Attending: Coverage Notice Comment: Last DP export: 10/21/18 1:11 p Patient Name: HOWARD WILKINS Page [id number] at 1511 All edits/amendments must be made on the electronic document DICTATION DATE: 10/23/181510 GUEST SERVICES AGENT: HE 10/23/181510 RPT#: [id number] DC DATE: STATUS: ADM IN [facility] [address] [place] [address] END OF REPORT
--- NOTE | 2018-10-23 15:20 | MORECARE ---
CASE MANAGEMENT DISCHARGE SUMMARY PATIENT: HOWARD WILKINS UNIT: [id number] ADM DATE: 10/21/18 AGE: 73 : 47 SEX: F ROOM/BED: D.3209 AUTHOR: ALEXA,DOC PHYSICIAN: REFERRING PHYSICIAN: ZAINAB HUFF MD DATE OF SERVICE: 10/23/18 Discharge Plan Patient Name: HOWARD WILKINS Facility: [facility]:[place] : 1945 Planned Disposition: Home Anticipated Discharge Date: 10/24/18 Discharge Date: Expected LOS: 3 Initial Reviewer: [email or web address] Initial Review Date: 10/21/2018 Generated: 10/23/18 4:20 pm Comments DCP- Discharge Planning Updated by [email or web address]: Aguilar Franco on 10/23/18 2:[address] Patient Name: HOWARD WILKINS Encounter No: [id number] : 1945 Primary Insurance: MEDICARE A & B Anticipated DC Date: 10-24-2018 Planned Disposition: Home DCP follow-up note: CM RECEIVED ORDER FOR NEBULIZER FROM DR. PIERRE. CM MET WITH PT IN ROOM TO DISCUSS DISCHARGE NEEDS AND PLANNING. CM DISCUSSED AVAILABILITY OF HOME HEALTH, REHAB SERVICES AND MEDICAL EQUIPMENT. PT DENIES DISCHARGE NEEDS OTHER THAN NEBULIZER; LISTING PROVIDED, CHOICE SIGNED FOR [facility]. PT REPORTS SHE WILL CALL HERSELF A TAXI TO TRANSPORT HOME AT DISCHARGE. IMPORTANT MESSAGE FROM [employer] PROVIDED AND EXPLAINED. CM CALLED [facility], , SPOKE TO [employer] AND PROVIDED REFERRAL INFORMATION. CM FAXED REFERRAL TO [facility], . [facility] WILL DELIVER NEBULIZER TO HOSPITAL FOR DISCHARGE HOME TOMORROW. Aguilar Franco, CASE MANAGEMENT DCP- Discharge Planning Updated by [id number]: Alisa Ly on 10/21/18 1:[address] DC PLAN: Return home alone. ANTICIPATED DC NEEDS: Does not have a PCP. Denied dc needs. CM met with patient to complete initial dc planning assessment. CM educated patient on the CM role and verbal consent given by patient to complete assessment. CM verified patient's address, phone number, and emergency contact phone numbers. Patient lives at home alone and reports she is independent in her care at home. At discharge patient plans to return home alone and feels this is a safe discharge. CM discussed availability of home health, rehab services, and medical equipment. Patient denied known discharge needs at this time. Patient reports she will call a Taxi to transport her home at time of discharge. CM will continue to follow and will assist as needed with dc plans/needs. Alisa Ly RN, [facility] DCPIA - Discharge Planning Initial Assessment Updated by [email or web address]: Alisa Ly on 10/21/18 2:07 pm * Is the patient Alert and Oriented? Yes * How many steps to enter\exit or inside your home? elevator * PCP Does not have a PCP * Pharmacy [facility] [address] * Preadmission Environment Home Alone * ADLs Independent * Equipment Rolling Walker * List name and contact numbers for known caregivers / representatives who currently or will assist patient after discharge: Jaspal flores - [phone] * Verbal permission to speak to the caregivers and representatives has been obtained from the patient. Yes * Community resources currently utilized None * Additional services required to return to the preadmission environment? No * Can the patient safely return to the preadmission environment? Yes * Has this patient been hospitalized within the prior 30 days at any hospital? No Coverage Notice Reviewer: [id number] Roxann Franco Notice Issued Date-Time: 10/23/2018 12:50 Notice Type: Patient Choice Letter Notice Delivered To: Patient Relationship to Patient: Publishing Agent Name: Delivery Method: HAND - Hand Delivered Marcia Days: Prior Verbal Notification: Recipient Understood Notice: Yes Recipient Signature: Yes Med Rec Note Co-signed by Attending: Coverage Notice Comment: INOCENCIO Reviewer: [id number] Roxann Franco Notice Issued Date-Time: 10/23/2018 12:50 Notice Type: IM Discharge Notice Notice Delivered To: Relationship to Patient: Publishing Agent Name: Delivery Method: HAND - Hand Delivered Marcia Days: Prior Verbal Notification: Recipient Understood Notice: Yes Recipient Signature: Yes Med Rec Note Co-signed by Attending: Coverage Notice Comment: Last DP export: 10/23/18 2:11 p Patient Name: HOWARD WILKINS Page [phone] at 1520 All edits/amendments must be made on the electronic document DICTATION DATE: 10/23/18 1520 FIRE MANAGEMENT OFFICER: HE 10/23/18 1520 RPT#: [id number] DC DATE: STATUS: ADM IN [facility] [address] [place] [address] END OF REPORT
[2018-10-23 16:45] VITALS: BP 118/52
--- NOTE | 2018-10-23 17:27 | NUR ---
ADMINISTERED BLOOD SUGAR PER SLIDING SCALE FOR BLOOD SUGAR OF 210. TOLERATED WELL. PT IS REQUESTING [facility], WILL CONTACT THE [facility]. DENIES OTHER NEEDS. WILL CTM.
--- NOTE | 2018-10-23 18:21 | NUR ---
REQUESTED [facility] FROM [facility] AND CONTACTED DR. PIERRE FOR AN ORDER TO PREVENT A VAGINAL YEAST INFECTION, PER PATIENT REQUEST. DENIES OTHER NEEDS. RESTING COMFORTABLY. WILL CTM.
--- NOTE | 2018-10-23 20:45 | NUR ---
AWAKE,ALERT.NO COMPLAITNS VOICED. NO DISTRESS NOTED. RESP EVEN AND UNLABORED. UP AD YADIRA IN ROOM. CL IN REACH
[2018-10-24 01:14] VITALS: BP 142/65
[2018-10-24 05:07] VITALS: BP 154/64
[2018-10-24 05:25] LABS: BASOPHILS 0 % (0-2); EOSINOPHILS 0 % (0-7); HEMATOCRIT 45.6 % (36.0-48.0); HEMOGLOBIN 15.8 g/dL (12-16); IMMATURE GRANULOCYTES 0.3 % (0-5); LYMPHOCYTES 7.5 % (15-50); MCH 33.7 pg (26.0-34.0); MCHC 34.6 g/dL (31.0-37.0); MCV 97.2 fL (80.0-100.0); MEAN PLATELET VOLUME 9.9 fL (7.4-10.4); MONOCYTES 1.9 % (2-11); NEUTROPHILS 90.3 % (40-80); PLATELET COUNT 218 10x3/uL (130-400); RBC 4.69 10x6/uL (4.00-5.40)
[2018-10-24 05:35] LABS: WBC 9.6 10x3/uL (4.8-10.8)
[2018-10-24 05:55] LABS: ALBUMIN 3.7 g/dL (3.4-5.0); ANION GAP 14.3 mmol/L (8-16); BILIRUBIN - TOTAL 0.48 mg/dL (0.2-1.3); CALCIUM 8.8 mg/dL (8.5-10.1); CARBON DIOXIDE 28.7 mmol/L (21.0-32.0); CREATININE - SERUM 2.1 mg/dL (0.6-1.3)
--- NOTE | 2018-10-24 08:18 | NUR ---
PATIENT IS SITTING UP IN BED EATTING HER BREAKFAST. DENIES ANY NEEDS AT THIS TIME.
[2018-10-24 08:47] VITALS: BP 128/69
[2018-10-24] MEDS ORDERED: OMNICEF300 MG PO (12:14)
[2018-10-24] MEDS ORDERED: ZITHROMAX250 MG PO (12:14)
[2018-10-24] MEDS ORDERED: DIFLUCAN100 MG PO (12:15)
[2018-10-24] MEDS ORDERED: IPRAT-ALBUT 0.5-3 ML INH (12:16)
[2018-10-24] MEDS ORDERED: TRELEGY ELLIPT1 EACH INH (12:17)
[2018-10-24] MEDS ORDERED: SINGULAIR10 MG PO (12:17)
[2018-10-24] MEDS ORDERED: ALBUTEROL SULF8.5 GM INH (12:18)
[2018-10-24] MEDS ORDERED: PREDNISONE10 MG PO (12:19)
[2018-10-24] MEDS ORDERED: MUCINEX DM ER1 EAC1 PO (12:19)
--- NOTE | 2018-10-24 12:27 | NUR ---
BLOOD SUGAR OF 444 TREATED WITH 12 UNITS ORDERED. CALLED MARIA ISABEL RANGEL AND RECHECKED B/S. 387 REPORTED TO MARIA ISABEL, AND SHE SAID TO WAIT FOR THE NEXT BLOOD SUGAR CHECK.
[2018-10-24 12:30] VITALS: BP 118/60
--- NOTE | 2018-10-24 13:34 | NUR ---
NUTRITION F/U RECEIVED CONSULT FOR DIABETIC EDU. PT REPORTS BEING DIAGNOSED IN 2006. STATES SHE HAS HAD DIABETIC EDU PREVIOUSLY AND CHECKS HER BLOOD SUGAR 2 OR 3 TIMES DAILY. WILL PROVIDE ADDITIONAL INFORMATION AND ENCOURAGE COMPLIANCE. RD FOLLOWING
[2018-10-24] MEDS ORDERED: LANTUS SOL100 UNIT/1 SC (16:46)
--- NOTE | 2018-10-24 17:41 | NUR ---
PATIENT REPORTS THAT SHE IS SCARED TO GO HOME WITHOUT INSULIN AND SHE IS OUT. SHE DOES NOT HAVE A PRIMARY CARE PROVIDER. CALLED THE [facility] ON [address] IN [place], [place] # . LEARNED THAT SHE HAD BEEN TAKING LANTUS 10 U AT BEDTIME AND ADDED IT TO HER MED LIST FOR [facility] ISABEL. JUAN CARLOS NICOLAS SAID SHE IS GOING TO REASSESS IN THE AM.
--- NOTE | 2018-10-24 19:10 | NUR ---
AWAKE AND ALERT NEEDS ATTENDED TOO AND COMFORT PROVIDED LCTA SKIN WARM AND DRY BOWEL SOUNDS X4 BED IS LOW AND LOCKED AND CALL LIGHT IS WITH PT
[2018-10-24 20:00] VITALS: BP 116/67
[2018-10-25 00:32] VITALS: BP 136/64
--- NOTE | 2018-10-25 03:50 | NUR ---
I have reviewed this patient and I concur with the Shift Assessment completed by the Licensed Practical Nurse today this shift.
[2018-10-25 04:00] VITALS: BP 134/79
[2018-10-25 04:39] LABS: BASOPHILS 0 % (0-2); EOSINOPHILS 0 % (0-7); HEMATOCRIT 47.7 % (36.0-48.0); HEMOGLOBIN 16.8 g/dL (12-16); IMMATURE GRANULOCYTES 0.4 % (0-5); LYMPHOCYTES 8.6 % (15-50); MCH 34.3 pg (26.0-34.0); MCHC 35.2 g/dL (31.0-37.0); MCV 97.3 fL (80.0-100.0); MEAN PLATELET VOLUME 10.3 fL (7.4-10.4); MONOCYTES 7.9 % (2-11); NEUTROPHILS 83.1 % (40-80); PLATELET COUNT 261 10x3/uL (130-400); RDW 12.9 % (11.5-14.5); WBC 11.5 10x3/uL (4.8-10.8)
[2018-10-25 05:06] LABS: ALBUMIN 3.9 g/dL (3.4-5.0); ANION GAP 13.8 mmol/L (8-16); BILIRUBIN - TOTAL 0.29 mg/dL (0.2-1.3); CALCIUM 9.1 mg/dL (8.5-10.1); CARBON DIOXIDE 33.1 mmol/L (21.0-32.0); CREATININE - SERUM 2.3 mg/dL (0.6-1.3); PROTEIN - SERUM 7.9 g/dL (6.4-8.2)
[2018-10-25 05:07] LABS: POTASSIUM - SERUM 4.9 mmol/L (3.5-5.1)
--- NOTE | 2018-10-25 08:04 | NUR ---
PT RESTING IN BED. AROUSED BY VERBAL STIMULI. DENIES ANY NEEDS. NO S/S OF ACUTE DISTRESS. CL IN PLACE.
[2018-10-25 08:50] VITALS: BP 163/79
[2018-10-25] MEDS ORDERED: GLUCOTROL 5 MG T5 MG PO (10:34)
--- NOTE | 2018-10-25 12:23 | NUR ---
DC PAPERWORK AND EDUCATION DONE WITH PT. PT HESITATE TO SIGN PAPERWORK. PT "I LIVE IN A PLACE WHERE THERE IS A BUNCH OF DRAMA. THEY NEED TO FIGURE OUT MY GOUT MEDICINE AND MY THYROID." EXPLAINED TO PT MD WAS READY TO DC AND THOSE ISSUES WOULD NEED TO BE ADDRESSED WHEN SHE WENT TO HER FOLLOW UP APPT. PT STATES, "I WILL HAVE TO TAKE A CAB." TOLD STEVE MORELAND WHO WENT IN TO SPEAK WITH HER ABOUT TRANSPORT.
--- NOTE | 2018-10-25 13:10 | MORECARE ---
CASE MANAGEMENT DISCHARGE SUMMARY PATIENT: HOWARD WILKINS UNIT: [id number] ADM DATE: 10/21/18 AGE: 73 : 47 SEX: F ROOM/BED: D.4599 AUTHOR: ALEXA,DOC PHYSICIAN: REFERRING PHYSICIAN: ZAINAB HUFF MD DATE OF SERVICE: 10/25/18 Discharge Plan Patient Name: HOWARD WILKINS Facility: [facility]:[place] : 1945 Planned Disposition: Home Anticipated Discharge Date: 10/25/18 Discharge Date: Expected LOS: 4 Initial Reviewer: [id number] Initial Review Date: 10/21/2018 Generated: 10/25/18 2:09 pm DCP- Discharge Planning Updated by [email or web address]: Aguilar Franco on 10/23/18 2:[address] Patient Name: HOWARD WILKINS Encounter No: [id number] : 1945 Primary Insurance: MEDICARE A & B Anticipated DC Date: 10-24-2018 Planned Disposition: Home DCP follow-up note: CM RECEIVED ORDER FOR NEBULIZER FROM DR. PIERRE. CM MET WITH PT IN ROOM TO DISCUSS DISCHARGE NEEDS AND PLANNING. CM DISCUSSED AVAILABILITY OF HOME HEALTH, REHAB SERVICES AND MEDICAL EQUIPMENT. PT DENIES DISCHARGE NEEDS OTHER THAN NEBULIZER; LISTING PROVIDED, CHOICE SIGNED FOR [facility]. PT REPORTS SHE WILL CALL HERSELF A TAXI TO TRANSPORT HOME AT DISCHARGE. IMPORTANT MESSAGE FROM [employer] PROVIDED AND EXPLAINED. CM CALLED [facility], , SPOKE TO [employer] AND PROVIDED REFERRAL INFORMATION. CM FAXED REFERRAL TO [facility], . [facility] WILL DELIVER NEBULIZER TO HOSPITAL FOR DISCHARGE HOME TOMORROW. Aguilar Franco, CASE MANAGEMENT DCP- Discharge Planning Updated by [id number]: Alisa Ly on 10/21/18 1:[address] DC PLAN: Return home alone. ANTICIPATED DC NEEDS: Does not have a PCP. Denied dc needs. CM met with patient to complete initial dc planning assessment. CM educated patient on the CM role and verbal consent given by patient to complete assessment. CM verified patient's address, phone number, and emergency contact phone numbers. Patient lives at home alone and reports she is independent in her care at home. At discharge patient plans to return home alone and feels this is a safe discharge. CM discussed availability of home health, rehab services, and medical equipment. Patient denied known discharge needs at this time. Patient reports she will call a Taxi to transport her home at time of discharge. CM will continue to follow and will assist as needed with dc plans/needs. Alisa Ly RN, [facility] DCPIA - Discharge Planning Initial Assessment Updated by [email or web address]: Alisa Ly on 10/21/18 2:07 pm * Is the patient Alert and Oriented? Yes * How many steps to enter\exit or inside your home? elevator * PCP Does not have a PCP * Pharmacy [facility] [address] * Preadmission Environment Home Alone * ADLs Independent * Equipment Rolling Walker * List name and contact numbers for known caregivers / representatives who currently or will assist patient after discharge: Jaspal flores - [phone] * Verbal permission to speak to the caregivers and representatives has been obtained from the patient. Yes * Community resources currently utilized None * Additional services required to return to the preadmission environment? No * Can the patient safely return to the preadmission environment? Yes * Has this patient been hospitalized within the prior 30 days at any hospital? No Coverage Notice Reviewer: [email or web address] Roxann Franco Notice Issued Date-Time: 10/23/2018 12:50 Notice Type: Patient Choice Letter Notice Delivered To: Patient Relationship to Patient: Salvage Cutter Name: Delivery Method: HAND - Hand Delivered Marcia Days: Prior Verbal Notification: Recipient Understood Notice: Yes Recipient Signature: Yes Med Rec Note Co-signed by Attending: Coverage Notice Comment: INOCENCIO Reviewer: [id number] Roxann Franco Notice Issued Date-Time: 10/23/2018 12:50 Notice Type: IM Discharge Notice Notice Delivered To: Relationship to Patient: Salvage Cutter Name: Delivery Method: HAND - Hand Delivered Marcia Days: Prior Verbal Notification: Recipient Understood Notice: Yes Recipient Signature: Yes Med Rec Note Co-signed by Attending: Coverage Notice Comment: Last DP export: 10/23/18 2:20 p Patient Name: HOWARD WILKINS Page [phone] at 1310 All edits/amendments must be made on the electronic document DICTATION DATE: 10/25/18 1309 CREDIT CARD SPECIALIST: HE 10/25/18 1309 RPT#: [id number] DC DATE: STATUS: ADM IN [facility] [address] [place] [place] [address] END OF REPORT
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
--- NOTE | 2018-10-25 15:29 | NUR ---
YARN DUMPER ASSISTED PT TO BUS STOP. ALL BELONGINGS SENT WITH PT. NO S/S OF ACUTE DISTRESS.
--- NOTE | 2018-10-27 12:40 | NUR ---
PT CALLS TO REPORT WENT TO CL ON [facility] TO RETURNING OFFICER PRESCRIPTIONS AND NOT THERE. ACCORDING TO CHART THEY WENT TO [facility] [address]. ADVISED PT I WOULD GET THE PRESCRIPTIONS TO CORRECT PHARMACY. SPOKE WITH DAVID AT [facility] ON [facility] AND HE WILL TRANSFER PRESCRIPTIONS THERE FROM THE [facility].
--- NOTE | 2018-10-29 13:38 | EC ---
PATIENT:HOWARD WILKINS DATE OF SERVICE: 10/21/18 SEX: F MEDICAL RECORD: [id number] DATE OF : [birth year] LOCATION:D.M2 D.210 AGE OF PATIENT: 73 ADMISSION DATE: 10/21/18 REFERRING PHYSICIAN: INTERPRETING PHYSICIAN: WILLY ALMANZA MD ECHOCARDIOGRAM REPORT ECHO CHARGES 4 ECHO COMPLETE Date: 10/21/18 CLINICAL DIAGNOSIS: INCREASED PRO/BNP , SOB HX OF ICD ECHOCARDIOGRAPHIC MEASUREMENTS (adult normal given) AC root (d.<3.7cm) 2.8 cm LV Septum d (<1.2 cm> 1.2 cm Valve Excursion 1.4 cm LV Septum (systole) 1.4 cm Left Atria (s.<4.0cm> 3.8 cm LVPW d(<1.2cm) 1.3 cm RV (d.<2.3cm) 4.5 cm LVPW (sytole) 1.5 cm LV diastole(<5.6CM) 5.7 cm MV E-F(>70mm/sec) cm LV systole 4.3 cm LVOT Diameter 1.5 cm MV exc.(>10mm) 1.4 cm Est.ejection fraction (50-75%) % DOPPLER: LVIT cm/sec A 111.0cm/sec E 53.0 cm/sec LA cm/sec RVSP 32 mmHg LVOT 97 cm/sec AOP1/2T m/s Asc. Ao 153 cm/sec RVOT 80 cm/sec RA cm/sec PA 120 cm/sec AV Gradient Peak 9.31 mmHg AV Mean 5.00 mmHg AV Area 1.0 cm MV Gradient Peak 5.52 mmHg MV Mean 2.21 mmHg MV Area cm COMMENTS: Reinforcing Steel Worker Wire Mesh: 2 ELI TEE Credit Counselor: 1 Dr. Almanza TAPE# PACS Pericardial Effusion N DATE OF SERVICE: PROCEDURE: Echocardiogram. FINDINGS: 1. Left ventricular chamber size is mildly dilated. Left ventricular systolic function is markedly reduced at 25% to 30%. 2. Left atrium is within normal limits at 3.8 cm. Right atrium and right ventricular chamber sizes are upper limits of normal. 3. Valvular structures have normal structure and motion. ECHOCARDIOGRAM REPORT [id number] HOWARD WILKINS 4. Doppler interrogation only reveals mild mitral regurgitation, trace tricuspid regurgitation, no other valvular insufficiency or stenosis. Pulmonary systolic pressure is estimated at 32 mmHg. 5. No evidence of pericardial effusion or left ventricular thrombus. TRANSINT:[id number] Voice Confirmation ID: [id number] DOCUMENT ID: [id number] WILLY ALMANZA MD at 1338 CC: [id number] DICTATION DATE: 10/22/18930 PLATE CLEANER: 10/22/18 1050 DIS IN 10/25/18 [facility] [address] [place] [id number]
== END 2018-10-25 15:30 | disposition home or self-care (01) | DRG 190 ==
LOC: D.ER 09:07 → D.M2 11:50
PROVIDERS: Family Medicine; ADMIT Emergency Medicine; ATTEND Emergency Medicine
DX: J44.0 Chronic obstructive pulmonary disease with (acute) lower respiratory infection (principal); I50.21 Acute systolic (congestive) heart failure; I42.9 Cardiomyopathy, unspecified; N17.9 Acute kidney failure, unspecified; F17.213 Nicotine dependence, cigarettes, with withdrawal; J20.9 Acute bronchitis, unspecified; J44.1 Chronic obstructive pulmonary disease with (acute) exacerbation; E11.9 Type 2 diabetes mellitus without complications; I25.10 Atherosclerotic heart disease of native coronary artery without angina pectoris; K21.9 Gastro-esophageal reflux disease without esophagitis; M54.9 Dorsalgia, unspecified; G89.29 Other chronic pain; F32.9 Major depressive disorder, single episode, unspecified; Z86.73 Personal history of transient ischemic attack (TIA), and cerebral infarction without residual deficits

== ENCOUNTER 2019-06-05 13:36 | Inpatient (IN) | payer OTHER, MEDICARE ==
[~2019-06-05] VITALS: Ht 149.9 cm; Wt 75.6 kg
[~2019-06-05 13:36] MED LIST changes: +ALBUTEROL SULF8.5 GM INH; +DIFLUCAN100 MG PO; +IPRAT-ALBUT 0.5-3 ML INH; +LANTUS SOL100 UNIT/1 SC; +MUCINEX DM ER1 EAC1 PO; +OMNICEF300 MG PO; +PREDNISONE10 MG PO; +SINGULAIR10 MG PO; +TRELEGY ELLIPT1 EACH INH; +ZITHROMAX250 MG PO
[2019-06-05] MEDS ORDERED: ASPIRIN81 MG PO (14:10)
[2019-06-05] MEDS ORDERED: COLCRYS0.6 MG PO (14:10)
[2019-06-05] MEDS ORDERED: PRAVACHOL20 MG PO (14:11)
[2019-06-05] MEDS ORDERED: K-DUR20 MEQ PO (14:16)
[2019-06-05] MEDS ORDERED: PLAVIX75 MG PO (14:17)
[2019-06-05] MEDS ORDERED: METOLAZONE2.5 MG PO (14:17)
[2019-06-05] MEDS ORDERED: TIROSINT100 MCG PO (14:17)
[2019-06-05] MEDS ORDERED: COREG 3.1253.125 MG PO (14:18)
[2019-06-05] MEDS ORDERED: PROTONIX20 MG PO (14:18)
[2019-06-05 15:14] VITALS: BP 110/67
[2019-06-05 15:41] LABS: BASOPHILS 0.4 % (0-2); EOSINOPHILS 1.1 % (0-7); HEMATOCRIT 48.9 % (36.0-48.0); HEMOGLOBIN 16.5 g/dL (12-16); IMMATURE GRANULOCYTES 0.4 % (0-5); LYMPHOCYTES 16.9 % (15-50); MCH 34.7 pg (26.0-34.0); MCHC 33.7 g/dL (31.0-37.0); MCV 102.7 fL (80.0-100.0); MONOCYTES 15.3 % (2-11); NEUTROPHILS 65.9 % (40-80); RBC 4.76 10x6/uL (4.00-5.40); RDW 14.7 % (11.5-14.5); WBC 5.6 10x3/uL (4.8-10.8)
[2019-06-05 15:45] LABS: PLATELET COUNT 205 10x3/uL (130-400)
[2019-06-05 16:01] LABS: CALC OSMOLALITY 300 mosm/kg (275-300); CALCIUM 8.8 mg/dL (8.5-10.1); CARBON DIOXIDE 23.5 mmol/L (21.0-32.0); CHLORIDE - SERUM 98 mmol/L (98-107); CREATININE - SERUM 2.4 mg/dL (0.6-1.3); GLUCOSE 126 mg/dL (74-106); POTASSIUM - SERUM 3.4 mmol/L (3.5-5.1); SODIUM 137 mmol/L (136-145); UREA NITROGEN 82 mg/dL (7-18); eGFR NON AFRICAN AMERICAN 21 mL/min (90-120)
[2019-06-05 16:20] LABS: ALBUMIN 4.2 g/dL (3.4-5.0); ALKALINE PHOSPHATASE 127 U/L (30-120); ALT (SGPT) 31 U/L (10-68); C-REACTIVE PROTEIN 0.2 mg/dL (0.0-0.9); CKMB 3.1 U/L (0.0-3.6); CREATINE KINASE 229 UL (21-215); FERRITIN 344 ng/mL (3-244); PROTEIN - SERUM 8.5 g/dL (6.4-8.2); TROPONIN-I 0.047 ng/mL (0.000-0.060)
[2019-06-05 16:44] LABS: AMYLASE - SERUM 34 U/L (25-115); LIPASE 140 U/L (73-393)
[2019-06-05 16:45] LABS: PRO BNP 35635 pg/mL (0-125)
--- NOTE | 2019-06-05 21:05 | NUR ---
RECIEVED PT FROM ER VIA STRETCHER BROUGHT BY HOSPITAL STAFF. NO SIGNS OF DISTRESS NOTED. ASSIST PT TO RESTROOM AND BACK TO BED. PT ENCOUAGRED TO CALL FOR HELP WHEN NEEDED OR NEEDED. WILL CONTINUE TO MONITOR
[2019-06-06] VITALS: BP 102/59
[2019-06-06 04:00] VITALS: BP 103/53
[2019-06-06 06:13] LABS: ALBUMIN 3.8 g/dL (3.4-5.0); BILIRUBIN - TOTAL 0.69 mg/dL (0.2-1.3); CALCIUM 8.1 mg/dL (8.5-10.1); CARBON DIOXIDE 21.1 mmol/L (21.0-32.0); CREATININE - SERUM 1.8 mg/dL (0.6-1.3); PHOSPHOROUS 4.2 mg/dL (2.5-4.9); PROTEIN - SERUM 7.6 g/dL (6.4-8.2)
[2019-06-06 06:20] LABS: ANION GAP 19.3 mmol/L (8-16); MAGNESIUM - SERUM 0.8 mg/dL (1.8-2.4); POTASSIUM - SERUM 2.4 mmol/L (3.5-5.1)
--- NOTE | 2019-06-06 06:55 | NUR ---
PT C/O CRAMPS. LAB CALLED MAG. LOW AND POTASSIUM LOW. PT HAS HAD DIARRHEA ALL NIGHT. DR UPTON PAGED. PRN MEDICATION GIVEN WILL CONTINUE TO MONITOR. CALL LIGHT WITH IN REACH
--- NOTE | 2019-06-06 07:10 | NUR ---
REPORT RECEIVED FROM TENNIS INSTRUCTOR AND PATIENT CARE ASSUMED. PATIENT LAYING IN BED WITH WITH EYES CLOSED AND BREATHING EVENLY. WILL CONTINUE WITH PLAN OF CARE. SRUP X 2 BED IN LOW POSITION AND CALL LIGHT IN REACH.
[2019-06-06 07:54] LABS: BASOPHILS 0.2 % (0-2); EOSINOPHILS 1.5 % (0-7); HEMATOCRIT 46.4 % (36.0-48.0); HEMOGLOBIN 15.4 g/dL (12-16); IMMATURE GRANULOCYTES 0.2 % (0-5); MCH 34.1 pg (26.0-34.0); MCHC 33.2 g/dL (31.0-37.0); MCV 102.9 fL (80.0-100.0); MEAN PLATELET VOLUME 10.2 fL (7.4-10.4); MONOCYTES 16.4 % (2-11); NEUTROPHILS 62.7 % (40-80); PLATELET COUNT 190 10x3/uL (130-400); RBC 4.51 10x6/uL (4.00-5.40); RDW 14.5 % (11.5-14.5); WBC 5.3 10x3/uL (4.8-10.8)
[2019-06-06 08:27] VITALS: BP 119/51
[2019-06-06 09:12] LABS: APTT 30.1 SECONDS (22.8-39.4); INR 1.11 (0.85-1.17); PROTIME 14.3 SECONDS (11.6-15.0)
--- NOTE | 2019-06-06 10:30 | NUR ---
PATIENT HAVING NAUSEA AND LIQUID STOOL. GOT STOOL SPECIMEN . PATIENT WAS ABLE TO CONTROL URINE SO STOOL SPECIMEN COULD BE COLLECTED BUT PATIENT CANNOT HOLD STOOL WHILE URINATING. UNABLE TO GET URINE SPECIMEN. WILL CONTINUE TO MONITOR. SR UPX 2 BED IN LOW POSITION AND CALL LIGHT IN REACH.
--- NOTE | 2019-06-06 12:30 | NUR ---
PATIENT COMPLAINS OF NAUSEA AND HAS SOME GREEN EMESIS. MEDICATED PATIENT WITH ZOFRAN. PATIENT HAS NOT URINATED OR HAD BM SINCE PREVIOUS. WILL CONTINUE TO MONITOR. SR UP X 2 BED IN LOW POSITION AND CALL IN REACH.
[2019-06-06 13:08] VITALS: BMI 23.9
--- NOTE | 2019-06-06 15:15 | NUR ---
PATIENT HAVING A RARE NON PRODUCTIVE COUGH. NO SPUTUM SAMPLE AVAILABLE.
--- NOTE | 2019-06-06 16:30 | NUR ---
PATIENT UNCHANGED. PATIENT UNABLE TO CONTROL STOOL AND THEREFORE UNABLE TO GET URINE SPECIMEN.
[2019-06-06 18:32] LABS: MAGNESIUM - SERUM 1.1 mg/dL (1.8-2.4); SODIUM 154 mmol/L (136-145)
[2019-06-06 18:46] LABS: CALC OSMOLALITY 313 mosm/kg (275-300); CREATININE - SERUM 0.9 mg/dL (0.6-1.3); POTASSIUM - SERUM 3.6 mmol/L (3.5-5.1); UREA NITROGEN 42 mg/dL (7-18); eGFR NON AFRICAN AMERICAN 65 mL/min (90-120)
[2019-06-06 18:50] LABS: CHLORIDE - SERUM 121 mmol/L (98-107)
[2019-06-06 18:51] LABS: GLUCOSE 69 mg/dL (74-106)
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
[2019-06-06 22:21] VITALS: BP 121/71
[2019-06-07 01:00] VITALS: BP 107/50
[2019-06-07 06:10] VITALS: BP 104/48
[2019-06-07 06:12] LABS: BASOPHILS 0.4 % (0-2); EOSINOPHILS 0.9 % (0-7); HEMATOCRIT 42.9 % (36.0-48.0); HEMOGLOBIN 14.1 g/dL (12-16); IMMATURE GRANULOCYTES 0.4 % (0-5); LYMPHOCYTES 19.5 % (15-50); MCH 34.3 pg (26.0-34.0); MCHC 32.9 g/dL (31.0-37.0); MCV 104.4 fL (80.0-100.0); MONOCYTES 13.2 % (2-11); NEUTROPHILS 65.6 % (40-80); PLATELET COUNT 168 10x3/uL (130-400); RBC 4.11 10x6/uL (4.00-5.40); RDW 14.9 % (11.5-14.5); WBC 4.5 10x3/uL (4.8-10.8)
[2019-06-07 06:49] LABS: ANION GAP 17.5 mmol/L (8-16); CALCIUM 8.5 mg/dL (8.5-10.1); CARBON DIOXIDE 22.5 mmol/L (21.0-32.0); CREATININE - SERUM 1.6 mg/dL (0.6-1.3); MAGNESIUM - SERUM 1.7 mg/dL (1.8-2.4); PHOSPHOROUS 3.2 mg/dL (2.5-4.9)
[2019-06-07 08:23] VITALS: BP 135/78
--- NOTE | 2019-06-07 09:00 | NUR ---
SITTING UP IN BED. RR EVEN AND UNLABORED. PAIN MEDICATION RECIEVED PER ORDERS. DENIES FURTHER NEEDS AT THIS TIME. CALL LIGHT WITHIN REACH. BED SIDE COMMODE WITHIN REACH. BED IN LOWEST POSITION. WILL CONTINUE TO MONITOR.
[2019-06-07 11:03] LABS: BILIRUBIN NEGATIVE (NEGATIVE); GLUCOSE NEGATIVE (NEGATIVE); KETONE NEGATIVE (NEGATIVE); NITRITE NEGATIVE (NEGATIVE); SPECIFIC GRAVITY 1.015 (1.005-1.020); UROBILINOGEN NORMAL (NORMAL); WHITE CELLS - URINE 0-5 /hpf (NEGATIVE)
[2019-06-07 12:26] VITALS: BP 118/74
[2019-06-07 17:10] VITALS: BP 111/62
--- NOTE | 2019-06-07 17:58 | NUR ---
I CONCUR WITH THIS HOME CARE RN ASSESSMENT OF THE PATIENT.
--- NOTE | 2019-06-07 20:10 | NUR ---
RECEIVED UP IN BED WITH EYES OPEN AND TV ON. ALERT AND ORIENTED X4. UP AD YADIRA TO BEDSIDE COMMODE. IV TO RT WRIST WITH PLASMOLYTE AT 50CC/HR. TELEMETRTY IN PLACE. REPORTED N/V TODAY. NO N/V AT THIS TIME. DENIES ANY NEEDS.
[2019-06-07 20:59] VITALS: BP 110/74
--- NOTE | 2019-06-07 21:08 | NUR ---
BLOOD SUGAR 171. REFUSES INSULIN STATED " I ONLY TAKE IT IF MY SUGAR IS OVER 200".
[2019-06-08 00:57] VITALS: BP 119/78
[2019-06-08 04:45] VITALS: BP 112/77
[2019-06-08 07:04] LABS: BASOPHILS 0.2 % (0-2); EOSINOPHILS 0.4 % (0-7); HEMATOCRIT 43.9 % (36.0-48.0); HEMOGLOBIN 14.3 g/dL (12-16); IMMATURE GRANULOCYTES 0.2 % (0-5); LYMPHOCYTES 16.2 % (15-50); MCH 34.4 pg (26.0-34.0); MCHC 32.6 g/dL (31.0-37.0); MCV 105.5 fL (80.0-100.0); MEAN PLATELET VOLUME 10.7 fL (7.4-10.4); MONOCYTES 13.5 % (2-11); NEUTROPHILS 69.5 % (40-80); PLATELET COUNT 155 10x3/uL (130-400); RBC 4.16 10x6/uL (4.00-5.40); RDW 15.2 % (11.5-14.5); WBC 5.5 10x3/uL (4.8-10.8)
[2019-06-08 07:28] LABS: ANION GAP 18.8 mmol/L (8-16); CARBON DIOXIDE 19.2 mmol/L (21.0-32.0); CREATININE - SERUM 1.4 mg/dL (0.6-1.3); MAGNESIUM - SERUM 1.7 mg/dL (1.8-2.4); PHOSPHOROUS 2.8 mg/dL (2.5-4.9)
[2019-06-08 09:06] VITALS: BP 121/74
--- NOTE | 2019-06-08 12:45 | NUR ---
I have reviewed this patient and I concur with the Shift Assessment completed by the Licensed Practical Nurse today this shift.
[2019-06-08 16:58] VITALS: BP 102/63
[2019-06-08 20:10] VITALS: BP 102/51
--- NOTE | 2019-06-08 22:53 | NUR ---
INITAL ROUNDS COMPLETED AT 1999 HES. PT DENIED ANY DISCOMFORT. ASSESSMENT COMPLETED AT THAT TIME. VSS. ST WITH BBB PER CM HR 106. ALERT AND ORIENTED TO PERSON, PLACE AND TIME. GAITAN. IV TO R WRIST INFILTRATED AND LEAKING. DC'S WITH CATHETER INTACT. LUNGS DIMINISHED IN BASES BILAT. GAITAN. PALPABLE PERIPHERAL PULSES. NUMEROUS SORES NOTED TO BACK. BRUISES NOTED TO BILAT ARMS. NEW IV STARTED #22 TO INNER R FA WITH ATTEMPT X1. PT TOLERATED ACTIVITY WELL. BICARB DRIP RESTARTED AT 50CC/HR. PM FSBS 139. NO COVERAGE NEEDED. PM MEDS GIVEN. MISSED IVABS RESTARTED. MORPHINE 2MG SIVP GIVEN FOR C/O CHRONIC LEG PAIN. PT CURRENTLY RESTING WITH EYES CLOSED. RESP EVEN AND REGULAR. SR UP X2, CALL LIGHT WITHIN REACH.
[2019-06-09 00:29] VITALS: BP 92/70
--- NOTE | 2019-06-09 00:58 | NUR ---
VSS. PT STATES IV MORPHINE HAS DECREASED HER PAIN. SR UP X2,CALL LIGHT WITHIN REACH.
[2019-06-09 04:22] VITALS: BP 111/70
--- NOTE | 2019-06-09 04:28 | NUR ---
VSS. PT STATED SHE SLEPT FOR ABOUT 3.5 HRS AND FEELS MUCH IMPROVED. SR UP X2, CALL LIGHT WITHIN REACH.
--- NOTE | 2019-06-09 06:05 | NUR ---
VSS THROUGHOUT NIGHT. PT STATED IV MORPHINE HELPED HER CHRONIC LEG PAIN. FEELS WELL RESTED THIS AM. NEEDS MET, WILL CONTINUE TO MONITOR.
[2019-06-09 06:47] LABS: BASOPHILS 0.3 % (0-2); EOSINOPHILS 0.5 % (0-7); HEMATOCRIT 43.5 % (36.0-48.0); HEMOGLOBIN 13.9 g/dL (12-16); IMMATURE GRANULOCYTES 0.7 % (0-5); LYMPHOCYTES 16.9 % (15-50); MCH 33.9 pg (26.0-34.0); MCV 106.1 fL (80.0-100.0); MEAN PLATELET VOLUME 10.9 fL (7.4-10.4); MONOCYTES 18.1 % (2-11); NEUTROPHILS 63.5 % (40-80); PLATELET COUNT 153 10x3/uL (130-400); RDW 15.8 % (11.5-14.5)
[2019-06-09 06:50] LABS: ALBUMIN 3.3 g/dL (3.4-5.0); ANION GAP 19.5 mmol/L (8-16); BILIRUBIN - DIRECT 0.5 mg/dL (0.00-0.30); BILIRUBIN - INDIRECT 0.54 mg/dL (0.00-1.00); BILIRUBIN - TOTAL 1.04 mg/dL (0.2-1.3); CALCIUM 8.8 mg/dL (8.5-10.1); CARBON DIOXIDE 18.3 mmol/L (21.0-32.0); CREATININE - SERUM 1.5 mg/dL (0.6-1.3); MAGNESIUM - SERUM 1.7 mg/dL (1.8-2.4); PROTEIN - SERUM 6.4 g/dL (6.4-8.2)
[2019-06-09 06:51] LABS: POTASSIUM - SERUM 4.8 mmol/L (3.5-5.1)
--- NOTE | 2019-06-09 07:20 | NUR ---
RECIEVE REPORT. RESTING IN BED WITH EYES CLOSED. NO SIGNS OF DISTRESS. CONTINUE PLAN OF CARE AND SAFETY PRECAUTIONS.
[2019-06-09 09:08] LABS: ANA REFLEX - DIRECT Negative (Negative)
--- NOTE | 2019-06-09 11:29 | NUR ---
Nutrition Follow-up: Pt remains in isolation; covid-19 pending. Noted pt c/o being hungry this AM. Ok to advance per Dr. Boss. Diet: Clear Liquid WT: 115# (06/05) Labs noted: Glu 136, Mg 1.7, Alb 3.3 Meds noted: Questran, electrolyte protocol -Diet advanced to diabetic diet. -Encourage PO intake and honor food preferences within diet restrictions. -Monitor wt. -RD following.
[2019-06-09 12:28] VITALS: BP 105/82
--- NOTE | 2019-06-09 13:38 | NUR ---
ALERT AND ORIENTED X4. COVID TEST NEGATIVE. TRANSFER TO ROOM 2125 VIA WHEELCHAIR. DENIES ANY NEEDS. CONTINUE PLAN OF CARE AND SAFETY PRECAUIONS.
--- NOTE | 2019-06-09 13:56 | NUR ---
I have reviewed this patient and I concur with the Shift Assessment completed by the Licensed Practical Nurse today this shift.
[2019-06-09 18:01] VITALS: BP 97/59
[2019-06-09 21:08] VITALS: BP 88/53
[2019-06-09 23:55] VITALS: BP 109/66
[2019-06-10 04:37] VITALS: BP 80/40
[2019-06-10 06:25] LABS: ANION GAP 15.9 mmol/L (8-16); CALCIUM 8.8 mg/dL (8.5-10.1); CARBON DIOXIDE 19.6 mmol/L (21.0-32.0); CREATININE - SERUM 1.6 mg/dL (0.6-1.3); MAGNESIUM - SERUM 1.8 mg/dL (1.8-2.4); PHOSPHOROUS 2.9 mg/dL (2.5-4.9); POTASSIUM - SERUM 5.5 mmol/L (3.5-5.1)
[2019-06-10 06:35] LABS: BASOPHILS 0.3 % (0-2); EOSINOPHILS 0.9 % (0-7); HEMATOCRIT 41.6 % (36.0-48.0); HEMOGLOBIN 13.2 g/dL (12-16); IMMATURE GRANULOCYTES 0.5 % (0-5); LYMPHOCYTES 14.1 % (15-50); MCH 34.9 pg (26.0-34.0); MCHC 31.7 g/dL (31.0-37.0); MEAN PLATELET VOLUME 11.5 fL (7.4-10.4); NEUTROPHILS 65.2 % (40-80); PLATELET COUNT 144 10x3/uL (130-400); RBC 3.78 10x6/uL (4.00-5.40); RDW 16.4 % (11.5-14.5); WBC 5.8 10x3/uL (4.8-10.8)
[2019-06-10 06:36] LABS: MCV 110.1 fL (80.0-100.0)
[2019-06-10 08:29] VITALS: BP 99/57
[2019-06-10 11:28] VITALS: BP 101/57
[2019-06-10 15:10] LABS: ANCA - ANTIMYELOPEROXIDASE <9.0 U/mL (0.0-9.0); ANCA - ANTIPROTEINASE 3 <3.5 U/mL (0.0-3.5); ANCA - ATYPICAL <1:20 titer (Neg:<1:20); ANCA - CYTOPLASMIC <1:20 titer (Neg:<1:20); ANCA - PERINUCLEAR <1:20 titer (Neg:<1:20)
[2019-06-10 15:46] VITALS: BP 111/48
[2019-06-10 21:44] VITALS: BP 101/64
[2019-06-11 00:15] VITALS: BP 105/71
[2019-06-11 05:08] VITALS: BP 102/54
[2019-06-11 06:38] LABS: BASOPHILS 0.4 % (0-2); EOSINOPHILS 0.7 % (0-7); HEMATOCRIT 40.5 % (36.0-48.0); HEMOGLOBIN 12.6 g/dL (12-16); IMMATURE GRANULOCYTES 0.4 % (0-5); LYMPHOCYTES 14.3 % (15-50); MCH 34.1 pg (26.0-34.0); MCHC 31.1 g/dL (31.0-37.0); MCV 109.8 fL (80.0-100.0); MEAN PLATELET VOLUME 11.1 fL (7.4-10.4); MONOCYTES 16.2 % (2-11); PLATELET COUNT 139 10x3/uL (130-400); RBC 3.69 10x6/uL (4.00-5.40); RDW 16.3 % (11.5-14.5); WBC 5.5 10x3/uL (4.8-10.8)
[2019-06-11 06:57] LABS: CALCIUM 8.7 mg/dL (8.5-10.1); CARBON DIOXIDE 19.2 mmol/L (21.0-32.0); CREATININE - SERUM 1.8 mg/dL (0.6-1.3); MAGNESIUM - SERUM 1.8 mg/dL (1.8-2.4); PHOSPHOROUS 3.2 mg/dL (2.5-4.9); POTASSIUM - SERUM 5.2 mmol/L (3.5-5.1)
[2019-06-11 09:00] VITALS: BP 113/67
--- NOTE | 2019-06-11 10:21 | NUR ---
Rehab Note- Acute Inpatient Rehab prescreen order received. The patient has [employer] insurance and will require a PreAuth. She has a pending PT & OT Eval that will be needed for the PreAuth process. Will follow at this time. Thank you for this referral! Sarah White RN Clinical Liaision, [facility] Rehab
[2019-06-11 12:00] VITALS: BP 100/53
[2019-06-11 16:00] VITALS: BP 94/41
--- NOTE | 2019-06-11 18:12 | NUR ---
RESTS IN BED WITH CALL LIGHT IN REACH. TELEMETRY SR. IV PATENT. WILL CONT. PLAN OF CARE.
[2019-06-11 20:00] VITALS: BP 120/76
[2019-06-12 04:00] VITALS: BP 103/55
--- NOTE | 2019-06-12 04:10 | NUR ---
IV RESITED TO TOP OF RIGHT HAND, 22 GUAGE, PT TOLERATED WELL.
[2019-06-12 09:23] VITALS: BP 123/75
[2019-06-12 12:00] VITALS: BP 139/79
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
[2019-06-12 14:35] LABS: BASOPHILS 0.3 % (0-2); EOSINOPHILS 0.3 % (0-7); HEMATOCRIT 40.6 % (36.0-48.0); HEMOGLOBIN 12.6 g/dL (12-16); IMMATURE GRANULOCYTES 0.4 % (0-5); LYMPHOCYTES 6.4 % (15-50); MCH 34.5 pg (26.0-34.0); MCV 111.2 fL (80.0-100.0); MEAN PLATELET VOLUME 10.5 fL (7.4-10.4); MONOCYTES 15.3 % (2-11); NEUTROPHILS 77.3 % (40-80); PLATELET COUNT 163 10x3/uL (130-400); RBC 3.65 10x6/uL (4.00-5.40); RDW 16.9 % (11.5-14.5)
[2019-06-12 14:39] LABS: WBC 7.4 10x3/uL (4.8-10.8)
[2019-06-12 14:47] LABS: ANION GAP 20.4 mmol/L (8-16); CARBON DIOXIDE 16.9 mmol/L (21.0-32.0); CREATININE - SERUM 2.1 mg/dL (0.6-1.3); POTASSIUM - SERUM 5.3 mmol/L (3.5-5.1)
--- NOTE | 2019-06-12 16:25 | NUR ---
TELEMETRY SR. CALL LIGHT IN REACH. NO NEEDS VOICED AT THIS TIME. WILL MONITOR.
--- NOTE | 2019-06-12 16:45 | NUR ---
OT NOTE: PT COMPLETED UB HYGIENE TASKS WITH SET UP. PT COMPLETED BED MOB TASKS WITH SPV. PT COMPLETED SUPINE TO SIT WITH SPV. [phone] THANK YOU,JARRED SONG
[2019-06-12 18:08] LABS: OVA + PARASITE EXAM Final report (())
--- NOTE | 2019-06-12 19:44 | NUR ---
REPORT RECIEVED AND ROUNDING COMPLETE. KASHMIR LAYING IN BED IN LOW FOWLERS, STATES SHE HAS NO NEEDS AT THIS TIME. HAS A RIGHT HAND PIV RUNNING FLUIDS. PIV IS PATIENT WITH NO S/SX OF INFILTRATION. BRENDA ASKING ABOUT WHAT HOME MEDS SHE NEEDS. WE DICUSSED THIS A BIT AND SHE WILL TALK TO THE DOCTOR IN THE AM. PATIENT SHOWS NO S/SX OF DISTRESS AT THIS TIME. CALL LIGHT WITHIN REACH AND BED IN LOWEST LOCKED POSITION.
[2019-06-12 20:00] VITALS: BP 122/59
[2019-06-13] VITALS: BP 120/46
[2019-06-13 04:00] VITALS: BP 108/56
[2019-06-13 11:08] VITALS: BP 137/79
[2019-06-13 12:00] VITALS: BP 111/68
--- NOTE | 2019-06-13 12:57 | NUR ---
Nutrition Follow-up: Sitting up on side of bed eating breakfast at time of visit. Reports sore mouth improving. Denies N/V/C/D. Diet: Diabetic Wt: 143.3# (06/10); 139.9# (06/09) Labs noted (06/11): Na 135, K+ 5.3, Glu 135 Meds noted: Nystatin, NS @ 75, Protonix, Carafate, Questran, electrolyte protocol -Encourage PO intake and honor food preferences within diet restrictions. -Monitor wt; noted daily wts ordered. -RD following.
--- NOTE | 2019-06-13 15:57 | NUR ---
OT NOTE: PT COMPLETED SUPINE TO SIT WITH SBA. PT COMPLETED EOB SITTING BALANCE WITH SBA. PT COMPLETED FACE HYGIENE WITH SET UP AT EOB . [phone] THANK YOU,JARRED SONG
[2019-06-13 16:30] VITALS: BP 104/85
[2019-06-13 16:43] LABS: BASOPHILS 0.2 % (0-2); EOSINOPHILS 0.3 % (0-7); HEMATOCRIT 41.1 % (36.0-48.0); HEMOGLOBIN 12.8 g/dL (12-16); IMMATURE GRANULOCYTES 0.6 % (0-5); LYMPHOCYTES 7.2 % (15-50); MCH 34.4 pg (26.0-34.0); MCHC 31.1 g/dL (31.0-37.0); MCV 110.5 fL (80.0-100.0); MEAN PLATELET VOLUME 10.7 fL (7.4-10.4); MONOCYTES 10.4 % (2-11); NEUTROPHILS 81.3 % (40-80); PLATELET COUNT 158 10x3/uL (130-400); RBC 3.72 10x6/uL (4.00-5.40); RDW 17.1 % (11.5-14.5); WBC 6.5 10x3/uL (4.8-10.8)
[2019-06-13 16:50] LABS: ANION GAP 19.5 mmol/L (8-16); CALCIUM 8.9 mg/dL (8.5-10.1); CARBON DIOXIDE 17.1 mmol/L (21.0-32.0); CREATININE - SERUM 2.4 mg/dL (0.6-1.3); POTASSIUM - SERUM 5.6 mmol/L (3.5-5.1)
--- NOTE | 2019-06-13 19:15 | NUR ---
BEDSIDE REPORT RECEIVED, PT CARE ASSUMED. INTRODUCED SELF AND WROTE NAME ON BOARD. PT SITTING ON SIDE OF BED, AAOX4. C/O RIGHT SIDED LEG AND BACK PAIN OF 10, ON A SCALE OF 0-10. DENIES ANY OTHER NEEDS AT THIS TIME. BED IN LOWEST POSITION, SR X2, CALL LIGHT WITHIN REACH. WILL CTM.
[2019-06-14 00:01] VITALS: BP 117/73
[2019-06-14 04:00] VITALS: BP 108/74
--- NOTE | 2019-06-14 07:00 | NUR ---
RECEIVED REPORT. ASSUMED CARE OF PATIENT. PATIENT SITTING TO SIDE OF BED CONSUMING WATER AT THIS TIME. PATIENT DENIES ANY NEEDS. WHITE BOARD UPDATED. CALL LIGHT WITHIN REACH. NO DISTRESS.
[2019-06-14 08:03] VITALS: BP 117/59
--- NOTE | 2019-06-14 09:45 | NUR ---
PT AT BEDSIDE FOR THERAPY. PATIENT OOB WITH THERAPY, TOLERATED PT WELL. NO DISTRESS.
--- NOTE | 2019-06-14 11:00 | NUR ---
ASSISTED PATIENT OOB TO BSC AND BACK TO BED. NO DISTRESS.
[2019-06-14 11:56] VITALS: BP 104/64
--- NOTE | 2019-06-14 12:23 | NUR ---
BROTH PROVIDED UPON REQUEST. PATIENT STATES SHE CANT EAT HER LUNCH BECAUSE HER MOUTH IS TOO SORE.
[2019-06-14] MEDS ORDERED: FLAGYL500 MG PO (14:30)
[2019-06-14] MEDS ORDERED: QUESTRAN LIG1 PACKET PO (14:31)
[2019-06-14 16:22] LABS: ANION GAP 20.1 mmol/L (8-16); CALCIUM 8.4 mg/dL (8.5-10.1); CARBON DIOXIDE 16.4 mmol/L (21.0-32.0); CREATININE - SERUM 2.5 mg/dL (0.6-1.3); POTASSIUM - SERUM 5.5 mmol/L (3.5-5.1)
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
[2019-06-14 20:00] VITALS: BP 93/55
[2019-06-15] VITALS: BP 113/55
[2019-06-15 04:00] VITALS: BP 112/50
--- NOTE | 2019-06-15 07:00 | NUR ---
RECEIVED REPORT. ASSUMED CARE OF PATIENT. PATIENT RESTING IN BED WITH EYES CLOSED ON RIGHT LATERAL SIDE. SR ON TELEMETRY, RATE OF 65. NO DISTRESS. CALL LIGHT WITHIN REACH.
[2019-06-15 08:06] VITALS: BP 89/60
[2019-06-15 08:47] LABS: HEMATOCRIT 40.7 % (36.0-48.0); HEMOGLOBIN 13.1 g/dL (12-16); LYMPHOCYTES 12.9 % (15-50); MCH 35.2 pg (26.0-34.0); MCHC 32.2 g/dL (31.0-37.0); MCV 109.4 fL (80.0-100.0); MEAN PLATELET VOLUME 11.1 fL (7.4-10.4); RBC 3.72 10x6/uL (4.00-5.40); RDW 19.2 % (11.5-14.5); WBC 4.9 10x3/uL (4.8-10.8)
[2019-06-15 08:48] LABS: PLATELET COUNT 101 10x3/uL (130-400)
[2019-06-15 09:10] LABS: CREATININE - SERUM 2.3 mg/dL (0.6-1.3); POTASSIUM - SERUM 5.6 mmol/L (3.5-5.1)
[2019-06-15 09:16] LABS: CARBON DIOXIDE 9.6 mmol/L (21.0-32.0)
--- NOTE | 2019-06-15 11:08 | NUR ---
FSBS 124. NO INSULIN PER SLIDING SCALE.
[2019-06-15 12:08] VITALS: BP 111/74
--- NOTE | 2019-06-15 12:27 | NUR ---
BLADDER SCAN COMPLETE. PATIENT SCANNED, INSTRUCTED TO URINATE, AND POST VOID SCAN COMPLETED. PATIENT SCANNED 256 ML PATIENT VOIDED 150 PATIENT SCANNED WITH 86 ML REMAINING IN BLADDER JUAN CARLOS CALI ON UNIT AND NOTIFIED OF BLADDER SCAN RESULTS.
[2019-06-15 14:18] LABS: ANION GAP 16.8 mmol/L (8-16); CALCIUM 8.3 mg/dL (8.5-10.1); CARBON DIOXIDE 17.9 mmol/L (21.0-32.0); CREATININE - SERUM 2.7 mg/dL (0.6-1.3); POTASSIUM - SERUM 4.7 mmol/L (3.5-5.1)
--- NOTE | 2019-06-15 14:40 | NUR ---
RESTING IN BED WITH EYES OPEN, ATTENTION TOWARD TELEVISION. NO DISTRESS.
[2019-06-15 15:43] VITALS: BP 108/67
--- NOTE | 2019-06-15 16:30 | NUR ---
FSBS 153. PATIENT REFUSED INSULIN AND WILL WAIT TO TAKE INSULIN IF FSBS IS STILL ELEVATED AT 2100 CHECK. NO DISTRESS. CALL LIGHT WITHIN REACH.
--- NOTE | 2019-06-15 19:10 | NUR ---
BEDSIDE REPORT RECEIVED, PT CARE ASSUMED. WROTE NAME ON BOARD. PT RECEIVING RESPIRATORY TX. DENIES ANY NEEDS AT THIS TIME. BED IN LOWEST, SRX1, CALL LIGHT WITHIN REACH. WILL CTM.
[2019-06-15 20:00] VITALS: BP 130/61
[2019-06-16 00:01] VITALS: BP 142/58
[2019-06-16 04:00] VITALS: BP 151/58
[2019-06-16 05:13] LABS: HEMATOCRIT 40.9 % (36.0-48.0); HEMOGLOBIN 13.3 g/dL (12-16); LYMPHOCYTES 15.2 % (15-50); MCH 35.3 pg (26.0-34.0); MCHC 32.5 g/dL (31.0-37.0); MCV 108.5 fL (80.0-100.0); MEAN PLATELET VOLUME 10.4 fL (7.4-10.4); NEUTROPHILS 74.5 % (40-80); PLATELET COUNT 82 10x3/uL (130-400); RBC 3.77 10x6/uL (4.00-5.40); RDW 19.1 % (11.5-14.5); WBC 5.8 10x3/uL (4.8-10.8)
[2019-06-16 05:45] LABS: CALC OSMOLALITY 291 mosm/kg (275-300); CALCIUM 8.3 mg/dL (8.5-10.1); CARBON DIOXIDE 16.3 mmol/L (21.0-32.0); CHLORIDE - SERUM 106 mmol/L (98-107); CREATININE - SERUM 2.6 mg/dL (0.6-1.3); GLUCOSE 144 mg/dL (74-106); SODIUM 136 mmol/L (136-145); T4 THYROXIN - FREE 0.57 ng/dL (0.76-1.46); THYROID STIMULATING HORMONE 8.31 uIU/mL (0.36-3.74); UREA NITROGEN 59 mg/dL (7-18); eGFR NON AFRICAN AMERICAN 19 mL/min (90-120)
[2019-06-16 05:58] LABS: POTASSIUM - SERUM 3.8 mmol/L (3.5-5.1)
--- NOTE | 2019-06-16 07:15 | NUR ---
RECEIVED PT IN BED EYES CLOSED RESP UNLABORED SKIN W/D NAD NOTED AT THIS TIME
[2019-06-16 09:09] VITALS: BP 110/90
[2019-06-16 11:45] LABS: PLATELET ESTIMATE DECREASED
[2019-06-16 12:00] VITALS: BP 92/52
--- NOTE | 2019-06-16 15:29 | NUR ---
OT NOTE: PT COMPLETED SUPINE TO SIT WITH CGA. PT COMPLETED ADL MOB WITH RW REQUIRED CGA. PT COMPLETED TOILETING WITH MOD A FOR HYGIENE. [phone] THANK YOU,JARRED SONG
[2019-06-16 16:00] VITALS: BP 98/57
--- NOTE | 2019-06-16 19:20 | NUR ---
RECEIVED REPORT, WILL ASSUME CARE OF PT, DENIES ANY NEEDS AT THIS TIME, BED IS LOW, SRX2, CALL LIGHT IN REACH, WILL CONTINUE PLAN OF CARE
[2019-06-16 20:48] VITALS: BP 90/56
[2019-06-17] VITALS (7 sets, daily range): BP systolic 91–104; BP diastolic 50–63
[2019-06-17 05:22] LABS: ALBUMIN 2.9 g/dL (3.4-5.0); ANION GAP 13.7 mmol/L (8-16); BILIRUBIN - TOTAL 1.09 mg/dL (0.2-1.3); CALCIUM 7.9 mg/dL (8.5-10.1); CARBON DIOXIDE 19.9 mmol/L (21.0-32.0); CREATININE - SERUM 2.6 mg/dL (0.6-1.3); MAGNESIUM - SERUM 1.6 mg/dL (1.8-2.4); POTASSIUM - SERUM 3.6 mmol/L (3.5-5.1); PROTEIN - SERUM 5.7 g/dL (6.4-8.2)
[2019-06-17 05:41] LABS: HEMATOCRIT 39.5 % (36.0-48.0); HEMOGLOBIN 12.6 g/dL (12-16); MCH 34.4 pg (26.0-34.0); MCHC 31.9 g/dL (31.0-37.0); MCV 107.9 fL (80.0-100.0); MEAN PLATELET VOLUME 11.4 fL (7.4-10.4); NEUTROPHILS 73.5 % (40-80); PLATELET COUNT 85 10x3/uL (130-400); RBC 3.66 10x6/uL (4.00-5.40); RDW 19.7 % (11.5-14.5); WBC 4.4 10x3/uL (4.8-10.8)
--- NOTE | 2019-06-17 07:20 | NUR ---
RECIEVE REPORT. ALERT AND ORIENTED X4. ASSIST UP TO BEDSIDE COMMODE. ENCOURAGE HIT CALL LIGHT WHEN FINISHED. CONTINUE PLAN OF CARE AND SAFETRY PRECAUTIONS.
--- NOTE | 2019-06-17 12:21 | NUR ---
LOS 13 : No skin breakdown is noted. Pt is independent of ADLs. She has multiple scars and bruises. Wound care continues to monitor.
--- NOTE | 2019-06-17 12:58 | NUR ---
OT NOTE: PT WITH SIGNIFICANT DECLINE TODAY. INCREASED EDEMA IN LES. INCREASED DIFFICULTY MOVING AND AMBULATING DUE TO SWELLING AND PAIN. MOD ASSIST WTIH EXT TIME FOR BED MOB; MOD ASSIST WITH SIT TO STAND; ONLY ABLE TO AMB APPROX 15 FT WITH WALKER AND MIN ASSIST DUE TO PAIN. MAX ASSIST WITH LE DRESSING AND MOD ASSIST TO HARI BRIEF TODAY.. MIN ASSIST WITH GOWN..REQUIRED MOD ASSIST TO RETURN TO BED. PT WITH C/O PAIN DUE TO EDEMA FRIDA BELCHER, OTR/L [phone]
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
--- NOTE | 2019-06-17 16:04 | NUR ---
OT NOTE: PT REQUIRED MOD A FOR SUPINE TO SIT . PT REQUIRED CGA FOR EOB SITTING. PT COMPLETED UB HYGIENE TASKS AT EOB WITH MIN A. PT HAS LE EDEMA. PT REQUIRED INCREASED PHYSICAL ASSIST THIS SESSION. NURSING AWARE. [phone] THANK YOU,JARRED SONG
--- NOTE | 2019-06-17 20:47 | NUR ---
HS MEDS GIVEN WITH FRESH ICE WATER. FINGER STICK REFUSED. MORPHINE 2 MG GIVEN FOR C/O PAIN TO BACK AND LEGS. RATES PAIN AT AN 8 ON PAIN SCALE.
--- NOTE | 2019-06-18 00:50 | NUR ---
I have reviewed this patient and I concur with the Shift Assessment completed by the Licensed Practical Nurse today this shift.
--- NOTE | 2019-06-18 04:23 | NUR ---
UP WITH ASSIST TO BR.
[2019-06-18 04:52] VITALS: BP 102/83
[2019-06-18 05:09] LABS: APTT 41.3 SECONDS (22.8-39.4); INR 1.49 (0.85-1.17); PROTIME 17.9 SECONDS (11.6-15.0)
[2019-06-18 05:18] LABS: D-DIMER-QUANTITATIVE 2.84 ug/mLFEU (0.20-0.54)
[2019-06-18 05:21] LABS: BASOPHILS 0.3 % (0-2); EOSINOPHILS 3.2 % (0-7); HEMATOCRIT 39.8 % (36.0-48.0); HEMOGLOBIN 13.2 g/dL (12-16); IMMATURE GRANULOCYTES 0.3 % (0-5); LYMPHOCYTES 13.3 % (15-50); MCH 35.8 pg (26.0-34.0); MCHC 33.2 g/dL (31.0-37.0); MCV 107.9 fL (80.0-100.0); MEAN PLATELET VOLUME 10.7 fL (7.4-10.4); MONOCYTES 11.5 % (2-11); NEUTROPHILS 71.4 % (40-80); RBC 3.69 10x6/uL (4.00-5.40); WBC 3.5 10x3/uL (4.8-10.8)
[2019-06-18 05:22] LABS: PLATELET COUNT 108 10x3/uL (130-400)
[2019-06-18 05:25] LABS: ANION GAP 13.8 mmol/L (8-16); CALCIUM 8.2 mg/dL (8.5-10.1); CARBON DIOXIDE 19.2 mmol/L (21.0-32.0); CREATININE - SERUM 2.4 mg/dL (0.6-1.3); TROPONIN-I 0.017 ng/mL (0.000-0.060)
--- NOTE | 2019-06-18 07:20 | NUR ---
RECIEVE REPORT. ALERT AND ORIENTED X4. SITTING UP ON SIDE OF BED RECIEVING UPDRAFT TREATMENT. SINUS RYTHM ON TELEMETRY. DENIES ANY NEEDS. CONTINUE PLAN OF CARE AND SAFETY PRECAUTIONS.
[2019-06-18 08:58] VITALS: BP 108/63
[2019-06-18 09:00] VITALS: Ht 149.9 cm; Wt 75.6 kg
--- NOTE | 2019-06-18 12:24 | NUR ---
Nutrition Follow-up: Ate ~25% of breakfast this AM but drinking Nepro. Denies N/V/C/D. Diet: Renal ADA PO intake: 56% avg x 4 meals Wt: 166.4# (06/17); 143.3# (06/10); 139.9# (06/09) Last BM: 06/16 Labs noted: K+ 3.0, Glu 126, Ca 8.2 Meds noted: Bumex, Nystatin, Protonix, Carafate, Humulin, electrolyte protocol -MD may consider liberalizing to cardiac diabetic diet (K+ now low). -Will provide food choices with selective menus and honor food preferences within diet restrictions. -Monitor wt; noted daily wts ordered. -RD following.
[2019-06-18 13:21] VITALS: BP 127/75
--- NOTE | 2019-06-18 15:50 | NUR ---
PT SCRATCHES AND HAS OPEN SORES ON ARMS, BACK OF NECK AND LOWER BACK. SHE SAYS THE DOCTOR TOLD HER TO "DIG THEM OUT". WOUND CARE CONTINUES MONITORING.
--- NOTE | 2019-06-18 17:22 | NUR ---
OT NOTE: PT COMPLETED SUPINE TO SIT WITH MIN A. PT COMPLETED SIT TO STAND WITH CGA. PT COMPLETED ADL MOB WITH CGA . PT IS WEAK. PT HAS INCREASED LE EDEMA. NURSING AWARE. PT COMPLETED ORAL HYGIENE AT EOB WITH SET UP. [phone] THANK YOU,JARRED SONG
[2019-06-18 18:53] VITALS: BP 123/77
[2019-06-18 20:00] VITALS: BP 107/60
[2019-06-19] VITALS: BP 110/60; BP 95/66
[2019-06-19 04:00] VITALS: BP 107/70
[2019-06-19 04:57] LABS: BASOPHILS 0 % (0-2); EOSINOPHILS 2.3 % (0-7); HEMATOCRIT 42.2 % (36.0-48.0); HEMOGLOBIN 13.4 g/dL (12-16); IMMATURE GRANULOCYTES 0.3 % (0-5); LYMPHOCYTES 11.6 % (15-50); MCH 34.3 pg (26.0-34.0); MCHC 31.8 g/dL (31.0-37.0); MCV 107.9 fL (80.0-100.0); MEAN PLATELET VOLUME 10.4 fL (7.4-10.4); MONOCYTES 10.4 % (2-11); NEUTROPHILS 75.4 % (40-80); PLATELET COUNT 101 10x3/uL (130-400); RBC 3.91 10x6/uL (4.00-5.40); WBC 3.5 10x3/uL (4.8-10.8)
[2019-06-19 05:09] LABS: ANION GAP 17.3 mmol/L (8-16); CALCIUM 8.1 mg/dL (8.5-10.1); CARBON DIOXIDE 17.8 mmol/L (21.0-32.0); MAGNESIUM - SERUM 1.4 mg/dL (1.8-2.4); POTASSIUM - SERUM 3.1 mmol/L (3.5-5.1)
--- NOTE | 2019-06-19 05:25 | NUR ---
IV RESITED TO UPPER LEFT SHOULDER. 29 JT, PT TOLERATED WELL.
--- NOTE | 2019-06-19 07:37 | NUR ---
ASSESSMENT DONE. DENIES NEEDS
--- NOTE | 2019-06-19 10:07 | NUR ---
I have reviewed this patient and I concur with the Shift Assessment completed by the Licensed Practical Nurse today this shift.
[2019-06-19 13:39] VITALS: BP 113/63
--- NOTE | 2019-06-19 15:04 | NUR ---
OT NOTE: EDEMA IMPROVED IN HANDS AND FEET. PT STATES THAT SHE STILL CANT WALK DUE TO PAIN/NUMBNESS IN FEET. PERFORMED BED MOB INCLUDING SUPINE TO SIT WITH VERY MINIMAL ASSIST. EOB SITTING WITHOUT DIFFICULTY; PERFORMED TOILET TRANSFER WITH MIN ASSIST; HYGIENE WITH MIN ASSIST; ABLE TO PERFORM GROOMING TASK WHILE AT EOB; REQUIRED MOD ASSIST FOR SIT TO SUPINE DUE TO DIFFICULTY GETTING LEGS IN BED. FRIDA BELCHER, OTR/L [phone]
[2019-06-19 16:00] VITALS: BP 115/64
--- NOTE | 2019-06-19 16:47 | NUR ---
WITHOUT CHANGES OR DISTRESS NOTED AT THIS TIME. DENIES NEEDS
[2019-06-19 20:00] VITALS: BP 93/69
--- NOTE | 2019-06-19 21:16 | NUR ---
RECEIVED CALL BACK FROM DR. LY, HE'S COMING TO FACILITY TO EXAM PATIENT.
--- NOTE | 2019-06-20 00:25 | NUR ---
PATIENT C/O GENERALIZED PAIN 11/14. ADMINISTERED PRN MORPHINE PER ORDERS. WILL CTM.
[2019-06-20 04:00] VITALS: BP 90/68
[2019-06-20 05:07] LABS: BASOPHILS 0.2 % (0-2); EOSINOPHILS 3.2 % (0-7); HEMATOCRIT 40.5 % (36.0-48.0); HEMOGLOBIN 12.9 g/dL (12-16); IMMATURE GRANULOCYTES 0.2 % (0-5); LYMPHOCYTES 12.6 % (15-50); MCH 34.7 pg (26.0-34.0); MCHC 31.9 g/dL (31.0-37.0); MCV 108.9 fL (80.0-100.0); MEAN PLATELET VOLUME 10.4 fL (7.4-10.4); NEUTROPHILS 69.8 % (40-80); RBC 3.72 10x6/uL (4.00-5.40); RDW 19.4 % (11.5-14.5)
[2019-06-20 05:17] LABS: PLATELET COUNT 111 10x3/uL (130-400); WBC 4.4 10x3/uL (4.8-10.8)
[2019-06-20 05:20] LABS: ANION GAP 12.2 mmol/L (8-16); CALCIUM 7.8 mg/dL (8.5-10.1); CREATININE - SERUM 1.8 mg/dL (0.6-1.3); MAGNESIUM - SERUM 1.6 mg/dL (1.8-2.4); POTASSIUM - SERUM 3.4 mmol/L (3.5-5.1)
[2019-06-20 05:26] LABS: CARBON DIOXIDE 23.2 mmol/L (21.0-32.0)
--- NOTE | 2019-06-20 06:26 | NUR ---
DECREASED DOBUTAMINE DRIP FROM 11.3ML/HR TO 9.8ML/HR BASED ON PATIENT WEIGHT OF 144LB (65KG) PER STANDING SCALE
[2019-06-20 07:43] VITALS: BP 109/63
--- NOTE | 2019-06-20 11:10 | NUR ---
DC'D PT'S DOUBUTAMINE DRIP PER ORDER. PT A/O X4. VITALS STABLE. NO S/S OF DISTRESS. WILL CONTINUE TO MONITOR.
[2019-06-20 11:51] VITALS: BP 77/49
--- NOTE | 2019-06-20 13:03 | NUR ---
Nutrition Follow-up: Good/fair PO intake. Ate 100% of breakfast this AM. Diet: Renal ADA PO intake: 69% avg x 4 meals Wt: 144# (06/19); 166.4# (06/17); 139.9# (06/09) Labs noted: K+ 3.6, Glu 129, Ca 7.8, Mg 1.6 Meds noted: Bumex, Miralax, Protonix, Carafate, electrolyte protocol -MD may consider liberalizing diet to cardiac carb consistent. -Encourage PO intake and honor food preferences within diet restrictions. -Monitor wt; noted daily wts ordered. -RD following.
--- NOTE | 2019-06-20 15:12 | NUR ---
OT NOTE: BED MOB WITH MIN ASSIST; SIT TO STAND WITH MIN ASSIST AND USE OF WALKER; MIN ASSIST WITH TRANSFERS; MOD ASSIST WITH TOILET HYGIENE.. PT WITH C/O PAIN WITH THOROUGH HYGIENE; APPLIED BUTT PAST; PT REQUIRED MOD ASSIST TO HARI BRIEF; SET UP WITH SIMPLE GROOMING; MIN ASSIST TO HARI GOWN. TOLERATED SITTING UP IN RECLINER WITH LEGS ELEVATED. FRIDA BELCHER, OTR/L [phone]
--- NOTE | 2019-06-20 15:25 | NUR ---
I have reviewed this patient and I concur with the Shift Assessment completed by the Licensed Practical Nurse today this shift.
[2019-06-20 15:52] VITALS: BP 91/60
--- NOTE | 2019-06-20 16:39 | NUR ---
OT NOTE: PT COMPLETED SUPINE TO SIT WITH MIN A. PT COMPLETED SIT TO STAND WITH CGA. PT COMPLETED ADL MOB WITH MIN A/CGA. PT COMPLETED FACE HYGIENE WITH SET UP AT EOB. [phone] THANK YOU,JARRED SONG
[2019-06-20 20:16] VITALS: BP 94/59
--- NOTE | 2019-06-20 22:33 | NUR ---
INITIAL ROUNDS COMPLETED AT 1920 HRS. PT RESTING WITH EYES CLOSED. RESP EVEN AND REGULAR. ASSISTED PT TO BSC AT 1940 HRS. SMALL AMOUNT OF LOOSE STOOL NOTED. ASSISTED BACK TO BED. ASSESSMENT COMPLETED AT 2019 HRS. VSS. SR PER CM HR 82. O2 2LNC. ALERT AND ORIENTED TO PERSON, PLACE AND TIME. GAITAN. LUNGS DIMINISHED IN BASES BILAT. BILAT 2+ PEDAL EDEMA. BRUISES NOTED TO BILAT ARMS. IV TO L SHOULDER BRUISED AND SLIGHTLY RED. IV PATENT. PM FSBS 140. NO COVERAGE NEEDED. PM MEDS GIVEN. PM SNACK SERVED. PT DECLINED APPLESAUCE. MORPHINE 4MG SIVP GIVEN FOR C/O CHRONIC GOUT PAIN. PT CURRENTLY RESTING WITH EYES CLOSED. RESP EVEN AND REGULAR. SR UP X2, CALL LIGHT WITHIN REACH. BED ALARM ON.
--- NOTE | 2019-06-20 23:33 | NUR ---
PT RESTING WITH EYES CLOSED. RESP EVEN AND REGULAR. SR UP X2, CALL LIGHT WITHIN REACH.
[2019-06-20 23:37] VITALS: BP 84/54
--- NOTE | 2019-06-21 01:57 | NUR ---
PT RESTING WITH EYES CLOSED. RESP EVEN AND REGULAR. SR UP X2, CALL LIGHT WITHIN REACH.
[2019-06-21 04:05] VITALS: BP 91/61
[2019-06-21 05:24] LABS: BASOPHILS 0.4 % (0-2); EOSINOPHILS 3.9 % (0-7); HEMATOCRIT 42.5 % (36.0-48.0); HEMOGLOBIN 13.4 g/dL (12-16); IMMATURE GRANULOCYTES 0.2 % (0-5); LYMPHOCYTES 18.7 % (15-50); MCH 34.7 pg (26.0-34.0); MCHC 31.5 g/dL (31.0-37.0); MCV 110.1 fL (80.0-100.0); MEAN PLATELET VOLUME 11.2 fL (7.4-10.4); MONOCYTES 13.4 % (2-11); NEUTROPHILS 63.4 % (40-80); PLATELET COUNT 103 10x3/uL (130-400); RBC 3.86 10x6/uL (4.00-5.40); RDW 20.1 % (11.5-14.5); WBC 4.9 10x3/uL (4.8-10.8)
[2019-06-21 05:30] LABS: ALBUMIN 2.9 g/dL (3.4-5.0); BILIRUBIN - TOTAL 1.1 mg/dL (0.2-1.3); CALCIUM 8.1 mg/dL (8.5-10.1); CARBON DIOXIDE 23.3 mmol/L (21.0-32.0); CREATININE - SERUM 1.7 mg/dL (0.6-1.3); MAGNESIUM - SERUM 1.6 mg/dL (1.8-2.4); POTASSIUM - SERUM 4.3 mmol/L (3.5-5.1)
--- NOTE | 2019-06-21 06:17 | NUR ---
MAG 1.6 THIS AM. MAGOX 400MG PO GIVEN PER S/S. AM FSBS 126. NO COVERAGE NECESSARY. NEEDS MET; WILL CONTINUE TO MONITOR.
--- NOTE | 2019-06-21 07:00 | NUR ---
RECEIVED REPORT. ASSUMED CARE OF PATIENT. CALL LIGHT WITHIN REACH. PATIENT EASILY AROUSED. BEDSIDE REPORT GIVEN AND WHITE BOARD UPDATED. PATIENT REQUESTING COFFEE AND ICE CHIPS. NO DISTRESS.
[2019-06-21 09:40] VITALS: BP 100/61
--- NOTE | 2019-06-21 11:26 | NUR ---
FSBS 154. PATIENT REFUSED INSULIN AT THIS TIME BECAUSE HER GLUCOSE WAS NOT OVER 200. EDUCATION PROVIDED. NO DISTRESS.
[2019-06-21 13:12] VITALS: BP 81/53
--- NOTE | 2019-06-21 16:46 | NUR ---
FSBS 165. REFUSED INSULIN GLUCOSE WAS NOT OVER 200, EDUCATION PROVIDED.
--- NOTE | 2019-06-21 19:20 | NUR ---
RECEIVED REPORT, WILL ASSUME CARE OF PT, ASSIST TO BED SIDE COMMODE AND BACK TO BED, ASKING FOR ALL LIGHT TO BE TURNED OFF, BED IS LOW, SRX2, CALL LIGHT IN REACH, WILL CONTINUE PLAN OF CARE
[2019-06-21 20:00] VITALS: BP 102/62
[2019-06-22 04:00] VITALS: BP 89/47
[2019-06-22 05:46] LABS: BASOPHILS 0.4 % (0-2); EOSINOPHILS 3.3 % (0-7); HEMATOCRIT 40.7 % (36.0-48.0); HEMOGLOBIN 12.7 g/dL (12-16); IMMATURE GRANULOCYTES 0.6 % (0-5); LYMPHOCYTES 15.4 % (15-50); MCH 34.3 pg (26.0-34.0); MCHC 31.2 g/dL (31.0-37.0); MEAN PLATELET VOLUME 11.2 fL (7.4-10.4); MONOCYTES 15.5 % (2-11); NEUTROPHILS 64.8 % (40-80); PLATELET COUNT 97 10x3/uL (130-400); WBC 5.2 10x3/uL (4.8-10.8)
[2019-06-22 05:59] LABS: ALBUMIN 2.6 g/dL (3.4-5.0); BILIRUBIN - TOTAL 0.93 mg/dL (0.2-1.3); CALCIUM 7.8 mg/dL (8.5-10.1); CARBON DIOXIDE 18.1 mmol/L (21.0-32.0); CREATININE - SERUM 1.8 mg/dL (0.6-1.3); MAGNESIUM - SERUM 1.5 mg/dL (1.8-2.4); PROTEIN - SERUM 5.4 g/dL (6.4-8.2)
[2019-06-22 06:01] LABS: ANION GAP 14.5 mmol/L (8-16); POTASSIUM - SERUM 3.6 mmol/L (3.5-5.1)
--- NOTE | 2019-06-22 07:00 | NUR ---
RECEIVED REPORT. ASSUMED CARE OF PATIENT. PATIENT RESTING IN BED WITH EYES OPEN, ATTENTION TOWARD TELEVISION. LEGS ELEVATED AND NOTED TO HAVE 2-3+ PITTING EDEMA BILATERALLY. PATIENT DENIES NEEDS. BEDSIDE SHIFT REPORT COMPLETE. WHITE BOARD UPDATED. PATIENT IS SR ON TELEMETRY, RATE OF 79.
[2019-06-22 08:45] VITALS: BP 101/68
--- NOTE | 2019-06-22 11:28 | NUR ---
FSBS 179. PATIENT REFUSED INSULIN, GLUCOSE NOT OVER 200. EDUCATION PROVIDED. BATTERIES REPLACED IN TELEMETRY. NO DISTRESS. CALL LIGHT WITHIN REACH. NO DISTRESS.
[2019-06-22 12:14] LABS: PLATELET ESTIMATE DECREASED
[2019-06-22 12:16] VITALS: BP 95/58
[2019-06-22 12:16] LABS: ROULEAUX OCC
--- NOTE | 2019-06-22 13:07 | NUR ---
ASSISTED PATIENT BACK INTO BED, LEGS ELEVATED ON PILLOWS. EDEMA TO BILATERAL LOWER EXTREMITIES WORSE NOW THAT PATIENT HAS BEEN SITTING TO SIDE OF BED DANGLING LEGS FOR 2 HOURS. ENCOURAGED TO KEEP LEGS ELEVATED. PATIENT SCRATCHED SCAB ON BACK OF LEFT LEG. MEPILEX DRESSING APPLIED AFTER CLEANSED WITH NSS. NO DISTRESS.
[2019-06-22 14:00] VITALS: BP 113/87
--- NOTE | 2019-06-22 15:09 | NUR ---
BENSON WILSON PROVIDED UPON REQUEST. NO DISTESS.
--- NOTE | 2019-06-22 16:08 | NUR ---
FSBS 175. PATIENT REFUSED INSULIN BECAUSE GLUCOSE NOT ABOVE 200. EDUCATION PROVIDED. NO DISTRESS.
--- NOTE | 2019-06-22 19:30 | NUR ---
RECEIVED REPORT, WILL ASSUME CARE OF PT, MANAGER FITNESS ASSISTING PT TO BSC, WILL CONTINUE PLAN OF CARE
[2019-06-22 20:00] VITALS: BP 95/62
[2019-06-23] VITALS (7 sets, daily range): BP systolic 84–118; BP diastolic 45–67
--- NOTE | 2019-06-23 02:04 | NUR ---
I have reviewed this patient and I concur with the Shift Assessment completed by the Licensed Practical Nurse today this shift.
[2019-06-23 05:43] LABS: BASOPHILS 0.2 % (0-2); EOSINOPHILS 2.9 % (0-7); HEMATOCRIT 40.7 % (36.0-48.0); HEMOGLOBIN 12.6 g/dL (12-16); IMMATURE GRANULOCYTES 0.6 % (0-5); LYMPHOCYTES 13.4 % (15-50); MCH 34.4 pg (26.0-34.0); MCV 111.2 fL (80.0-100.0); MEAN PLATELET VOLUME 11.6 fL (7.4-10.4); MONOCYTES 15.1 % (2-11); NEUTROPHILS 67.8 % (40-80); PLATELET COUNT 114 10x3/uL (130-400); RBC 3.66 10x6/uL (4.00-5.40); WBC 5.2 10x3/uL (4.8-10.8)
[2019-06-23 05:45] LABS: ALBUMIN 2.8 g/dL (3.4-5.0); ANION GAP 16.2 mmol/L (8-16); BILIRUBIN - TOTAL 1.19 mg/dL (0.2-1.3); CALCIUM 7.7 mg/dL (8.5-10.1); CARBON DIOXIDE 21.4 mmol/L (21.0-32.0); CREATININE - SERUM 1.8 mg/dL (0.6-1.3); MAGNESIUM - SERUM 1.5 mg/dL (1.8-2.4); POTASSIUM - SERUM 3.6 mmol/L (3.5-5.1); PROTEIN - SERUM 5.7 g/dL (6.4-8.2)
--- NOTE | 2019-06-23 07:15 | NUR ---
RECEIVED PT IN BED EYES CLOSED RESP UNLABORED SKIN W/D NAD NOTED
--- NOTE | 2019-06-23 15:47 | NUR ---
OT NOTE: PT COMPLETED SUPINE TO SIT WITH MIN A. PT COMPLETED SIT TO STAND WITH CGA/MIN A. PT COMPLETED ADL MOB WITH RW OF 50 FEET WITH CGA. PT IS EASILY FATIGUED. PT LE EDEMA IS PRESENT. NURSING NOTIFIED. NURSING WILL ORDER BLAKE SPANGLER. PT COMPLETED LB HYGIENE TASKS WITH MAX A. [phone] THANK YOU,JRARED SONG
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
--- NOTE | 2019-06-23 19:30 | NUR ---
RECEIVED REPORT, WILL ASSUME CARE OF PT, ASSISTED NABILA RN WITH PLACING BLAKE HOSE ON PT, DENIES ANY NEEDS AT THIS TIME, BED IS LOW, SRX2, CALL LIGHT IN REACH, WILL CONTINUE PLAN OF CARE
--- NOTE | 2019-06-24 02:38 | NUR ---
I have reviewed this patient and I concur with the Shift Assessment completed by the Licensed Practical Nurse today this shift.
[2019-06-24 05:23] VITALS: BP 94/50
[2019-06-24 06:56] LABS: ALBUMIN 2.6 g/dL (3.4-5.0); ANION GAP 13.7 mmol/L (8-16); BILIRUBIN - TOTAL 1.16 mg/dL (0.2-1.3); CALCIUM 7.9 mg/dL (8.5-10.1); CARBON DIOXIDE 21.5 mmol/L (21.0-32.0); CREATININE - SERUM 1.9 mg/dL (0.6-1.3); POTASSIUM - SERUM 3.2 mmol/L (3.5-5.1); PROTEIN - SERUM 5.5 g/dL (6.4-8.2)
[2019-06-24 07:28] LABS: BASOPHILS 0.6 % (0-2); EOSINOPHILS 2.4 % (0-7); HEMATOCRIT 39.6 % (36.0-48.0); HEMOGLOBIN 12.5 g/dL (12-16); IMMATURE GRANULOCYTES 0.8 % (0-5); LYMPHOCYTES 12.7 % (15-50); MCHC 31.6 g/dL (31.0-37.0); MCV 110.9 fL (80.0-100.0); MEAN PLATELET VOLUME 12.2 fL (7.4-10.4); MONOCYTES 16.5 % (2-11); PLATELET COUNT 135 10x3/uL (130-400); RBC 3.57 10x6/uL (4.00-5.40)
--- NOTE | 2019-06-24 09:05 | NUR ---
ASSESSMENT DONE. DENIES NEEDS
[2019-06-24 09:21] VITALS: BP 110/72
--- NOTE | 2019-06-24 10:12 | NUR ---
I have reviewed this patient and I concur with the Shift Assessment completed by the Licensed Practical Nurse today this shift.
[2019-06-24 13:03] VITALS: BP 101/65
--- NOTE | 2019-06-24 13:07 | NUR ---
Nutrition Follow-up: C/o diarrhea. Noted pt has been receiving Miralax; nursing reports pt did not receive today. Has been drinking some Nepro. Noted plans to d/c today. Diet: Renal ADA PO intake: 50-100% Wt: 166.4# (06/23); 160.9# (06/20); 166.4# (06/17); 143.3# (06/10) Labs noted: K+ 3.2, Glu 137, Ca 7.9, Alb 2.6 Meds noted: Bumex, Miralax, Protonix, Carafate, electrolyte protocol -MD may consider liberalizing to cardiac carb consistent diet. -Encourage PO intake and honor food preferences within diet restrictions. -Monitor wt; noted daily wts ordered. -RD following.
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
--- NOTE | 2019-06-24 13:38 | NUR ---
BLANCHABLE REDNESS NOTED ON BUTTOCKS. NO BREAKS IN SKIN. WOUND CARE CONTINUES TO MONITOR.
--- NOTE | 2019-06-24 14:04 | NUR ---
OT NOTE: PT WITH BLKAE HOSE ON TODAY; BED MOB WITH MIN ASSIST FOR SUPINE TO SIT; MAX ASSIST TO HARI SOCKS; MIN ASSIST TO HARI GOWN; SET UP FOR WASHING FACE, HANDS, AND BRUSHING HAIR. SIT TO STAND AND TRANSFERS WITH USE OF WALKER AND MIN ASSIST; ABLE TO AMB APPROX 60 FT TODAY WITH USE OF WALKER AND 2 REST BREAKS. PT BECAME VERY FATIGUED AFTER APPROX 45 FT OF AMB AND REQUIRED EXT REST BREAK; BACK TO BED WITH MIN ASSIST; MOD ASSIST TO REPOSITION. FRIDA BELCHER, OTR/L [phone]
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
--- NOTE | 2019-06-24 16:09 | NUR ---
UPON DISCHARGE PATIENT STATES HER PHARMACY IS [facility] [address]. I CALLED THE [facility] AND JERO TO IT. SPOKE WITH ZOILA - PHARMACIST.
--- NOTE | 2019-06-24 16:25 | NUR ---
DC GIVEN TO PT, DC HOME PER [facility]AX[facility]
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
== END 2019-06-24 16:26 | disposition home health service (06) | DRG 193 ==
LOC: D.ER 13:36 → D.M2 18:54
PROVIDERS: Family Medicine; Family Medicine Adult Medicine; Internal Medicine Gastroenterology; Internal Medicine Nephrology; Internal Medicine Pulmonary Disease; ADMIT Family Medicine; ATTEND Family Medicine
DX: J18.9 Pneumonia, unspecified organism (principal); I50.23 Acute on chronic systolic (congestive) heart failure; J44.0 Chronic obstructive pulmonary disease with (acute) lower respiratory infection; N17.9 Acute kidney failure, unspecified; E87.0 Hyperosmolality and hypernatremia; I42.9 Cardiomyopathy, unspecified; J44.1 Chronic obstructive pulmonary disease with (acute) exacerbation; R19.7 Diarrhea, unspecified; E11.22 Type 2 diabetes mellitus with diabetic chronic kidney disease; N18.9 Chronic kidney disease, unspecified; K21.9 Gastro-esophageal reflux disease without esophagitis; E86.0 Dehydration; E87.6 Hypokalemia; E11.65 Type 2 diabetes mellitus with hyperglycemia; I25.10 Atherosclerotic heart disease of native coronary artery without angina pectoris; E03.9 Hypothyroidism, unspecified; K57.90 Diverticulosis of intestine, part unspecified, without perforation or abscess without bleeding; D69.6 Thrombocytopenia, unspecified